=== PATIENT | male | born 1970 | race Caucasian/White ===

== ENCOUNTER 2017-04-26 07:57 | Observation (INO) ==
[2017-04-26 08:13] LABS: Bilirubin,Urine Negative (Negative); Blood,Urine Negative (Negative); Clarity,Urine Clear (Clear); Color,Urine Yellow (Yellow); Glucose,Urine (UA) Normal (Normal); Ketones,Urine Negative (Negative); Leukocyte Esterase,Urine Negative (Negative); Nitrite,Urine Negative (Negative); Protein,Urine Negative (Neg-Trace); Specific Gravity,Urine 1.023 (1.010-1.025); Urobilinogen,Urine Normal (Normal)
[2017-04-26] MEDS ORDERED: 0.9 % Sodium Chloride 1,000 ML IVC ONE (08:27)
[2017-04-26] MEDS ORDERED: Acetaminophen 325 MG TABLET PO ONE (08:31)
[2017-04-26 08:58] LABS: Basophils % 0.3 %; Eosinophils # 0.1 K/mcL (0.0-0.6); Eosinophils % 1.1 %; Hematocrit 44.5 % (37.5-50.1); Hemoglobin 14.8 g/dL (12.9-16.9); Immature Granulocytes % 0.4 % (0-4); Lymphocytes # 2.3 K/mcL (0.6-4.6); Lymphocytes % 32.9 %; Mean Corpuscular HGB Conc 33.3 g/dL (31.6-35.5); Mean Corpuscular Hemoglobin 29.1 pg (28.0-33.3); Mean Corpuscular Volume 87.4 fL (83.0-100.0); Mean Platelet Volume 9.2 fL (9.4-12.4); Monocytes # 0.4 K/mcL (0.0-1.3); Monocytes % 6.1 %; Neutrophils # 4.2 K/mcL (1.6-8.9); Platelet Count 289 K/mcL (140-400); Red Blood Count 5.09 M/mcL (4.19-5.50); Red Cell Distribution Width 13.4 % (11.5-14.5); Segmented Neutrophils % 59.2 %
--- NOTE | 2017-04-26 09:02 | Emergency Department Note ---
Disposition Clinical Impression: Syncope and collapse Headache Qualifiers: Headache type: unspecified Headache chronicity pattern: acute headache Intractability: not intractable Qualified Code(s): R51 - Headache Disposition: Admitted As Inpatient Condition: Fair Referrals: NONE,PCP [Primary Care Provider] - Forms: ED Satisfaction Letter Time of Disposition: 10:39 Syncope HPI - General Chief Complaint: ED Syncope Stated Complaint: Syncopal Episode Time Seen by Provider: 04/26/17 08:05 Source: patient Limitations: no limitations Nursing Notes Reviewed: Yes Vital Signs Reviewed: Yes - History of Present Illness HPI Narrative: The patient is a 47 y/o M with a history of hypertension who presents with syncopal episodes and a headache. Patient states that he has not been taking his blood pressure medications for one month and that he had a "mild heart attack" about one month ago. Patient states that the headache is frontal and throbbing that is worse with movement. Denies any radiation but admits photophobia and audiophobia. He states that two nights ago he passed out on the bathroom floor after urination for about 1 hour. HE admits loss of consciousness but does not know if he had any head trauma. Denies waking up in stool, urine, or blood. He denies any neurological deficits, numbness or tingling, weaknesses. He admits right shoulder pain and describes it like he hit it on something and was concern for fractures. - Related Data Previous Rx's Medication Instructions Recorded Escitalopram [Lexapro] 10 mg PO DAILY #30 tablet 03/12/16 TraZODone 100 mg PO HS PRN #30 tablet 03/12/16 hydrOXYzine pamoate [HydrOXYzine 50 mg PO TID PRN #120 capsule 03/12/16 Pamoate] Diclofenac Sodium [Voltaren] 50 mg PO Q8HR #30 tablet. 09/04/16 Tramadol HCl [Ultram] 50 mg PO Q6HR PRN #20 tab 09/04/16 Clotrimazole 1% CRM [Lotrimin 1%] 1 appl TP BID #1 tube 09/29/16 Doxycycline 100 mg PO BID #14 capsule 09/29/16 HYDROcodone/Acet 7.5/325 mg [[place] 1 tab PO Q6HR #20 tablet 09/29/16 7.5-325 mg] Ibuprofen 800 mg PO Q6HR #20 tablet 01/07/17 hydrOXYzine HCl [Hydroxyzine HCl] 50 mg PO BID PRN #15 tablet 02/15/17 Allergies Allergy/AdvReac Type Severity Reaction Status Date / Time naproxen Allergy Hives Verified 04/26/17 07:59 Penicillins Allergy Shakiness Verified 04/26/17 07:59 All systems ED: reviewed and negative except as stated. Constitutional: Denies: fever, chills, weakness Cardiovascular: Denies: chest pain, palpitations, dyspnea on exertion Respiratory: Denies: dyspnea, wheezes Musculoskeletal: Reports: other (right shoulder pain) Neurological: Reports: headache (frontal headache that is throbbing. Admits photophobia and audiophobia) Past Medical History - Past Medical History Medical history: Reports: kidney stones Surgical history: Reports: no surgical history Psychiatric history: Reports: depression, prior suicide attempt, previous psychiatric hospitalization - Social History Smoking Status: Current every day smoker Smokeless Tobacco Status: No Alcohol use: Reports: none Drug use: Reports: marijuana Physical Exam - General Limitations: no limitations General appearance: alert - Head Head exam: atraumatic - Eye Eye exam: Present: normal appearance, PERRL, EOMI - Cardiovascular Cardiovascular exam: Present: regular rate, normal rhythm. Absent: tachycardia , rubs, gallop, clicks - Abdominal Exam Abdominal exam: Present: soft, Non-Tender. Absent: tenderness, distention, guarding, rebound, rigidity - Neurological Exam Neurological exam: Present: alert, oriented X3, CN II-XII intact. Absent: motor sensory deficit Course - Consultations Consultation #1: 10:21 - Spoke with hospitalist and discussed the patient. Dr. Garcia accepted the patient. Time: 10:21 Vital Signs Temperature 97.9 F 04/26/17 07:59 Pulse Rate 88 04/26/17 07:59 Respiratory Rate 20 04/26/17 07:59 Blood Pressure 154/96 04/26/17 07:59 O2 Sat by Pulse Oximetry 99 04/26/17 07:59 Temperature 97.9 F 04/26/17 07:59 Pulse Rate 81 04/26/17 09:27 Respiratory Rate 18 04/26/17 09:27 Blood Pressure 148/98 04/26/17 09:27 O2 Sat by Pulse Oximetry 100 04/26/17 09:27 Oxygen Delivery Oxygen Delivery Room Air Syncope - MDM Narrative Medical decision making narrative: The patient is a 47 y/o M with a history of hypertension who presents with syncopal episodes and a headache. Patient states that he has not been taking his blood pressure medications for one month and that he had a "mild heart attack" about one month ago. Patient is afebrile with stable vitals. Labs are reviewed. Head CT, CXR, XR of right shoulder and XR cervical are unremarkable with no acute fractures or any intracranial bleeding. Patient is given Tylenol and later Toradol for pain. Plan to admit patient for observation. 10:21 - Spoke with hospitalist and discussed the patient. Dr. Garcia accepted the patient. - Lab Data Result diagrams: 04/26/17 08:51 04/26/17 09:17 Lab Results 04/26/17 04/26/17 04/26/17 Range/Units 08:00 08:51 08:51 WBC 7.0 (4.3-11.1) K/mcL RBC 5.09 (4.19-5.50) M/mcL Hgb 14.8 (12.9-16.9) g/dL Hct 44.5 (37.5-50.1) % MCV 87.4 (83.0-100.0) fL MCH 29.1 (28.0-33.3) pg MCHC 33.3 (31.6-35.5) g/dL RDW 13.4 (11.5-14.5) % Plt Count 289 (140-400) K/mcL MPV 9.2 L (9.4-12.4) fL Immature Gran % 0.4 (0-4) % Seg Neutrophils % 59.2 % Lymphocytes % 32.9 % Monocytes % 6.1 % Eosinophils % 1.1 % Basophils % 0.3 % Neutrophils # 4.2 (1.6-8.9) K/mcL Lymphocytes # 2.3 (0.6-4.6) K/mcL Monocytes # 0.4 (0.0-1.3) K/mcL Eosinophils # 0.1 (0.0-0.6) K/mcL Basophils # 0.0 (0.0-0.2) K/mcL PT 9.5 (9.4-12.1) Seconds INR 0.9 APTT 29.7 (26.0-36.0) Seconds D-Dimer 325 (0-500) ng/mLFEU Sodium (136-145) mEq/L Potassium (3.5-4.5) mEq/L Chloride (98-109) mEq/L Carbon Dioxide (19-29) mEq/L BUN (8-26) mg/dL Creatinine (0.72-1.25) mg/dL Est GFR ( Amer) (> 60) Est GFR (Non-Af Amer) (> 60) BUN/Creatinine Ratio (6-26) Glucose (70-99) mg/dL Calculated Osmolality (280-300) Calcium (8.6-10.8) mg/dL Creatine Kinase (30-200) Units/L Troponin I (0-0.03) ng/mL Urine Color Yellow (Yellow) Urine Clarity Clear (Clear) Urine pH 7.0 (5.0-8.0) pH Units Ur Specific [place] 1.023 (1.010-1.025) Urine Protein Negative (Neg-Trace) mg/dL Urine Glucose (UA) Normal (Normal) mg/dL Urine Ketones Negative (Negative) mg/dL Urine Blood Negative (Negative) Urine Nitrite Negative (Negative) Urine Bilirubin Negative (Negative) Urine Urobilinogen Normal (Normal) mg/dL Ur Leukocyte Esterase Negative (Negative) Ur Culture Indicated? NO (NO) Specimen Rejected 04/26/17 04/26/17 04/26/17 Range/Units 08:51 09:02 09:17 WBC (4.3-11.1) K/mcL RBC (4.19-5.50) M/mcL Hgb (12.9-16.9) g/dL Hct (37.5-50.1) % MCV (83.0-100.0) fL MCH (28.0-33.3) pg MCHC (31.6-35.5) g/dL RDW (11.5-14.5) % Plt Count (140-400) K/mcL MPV (9.4-12.4) fL Immature Gran % (0-4) % Seg Neutrophils % % Lymphocytes % % Monocytes % % Eosinophils % % Basophils % % Neutrophils # (1.6-8.9) K/mcL Lymphocytes # (0.6-4.6) K/mcL Monocytes # (0.0-1.3) K/mcL Eosinophils # (0.0-0.6) K/mcL Basophils # (0.0-0.2) K/mcL PT (9.4-12.1) Seconds INR APTT (26.0-36.0) Seconds D-Dimer (0-500) ng/mLFEU Sodium 144 (136-145) mEq/L Potassium 3.9 (3.5-4.5) mEq/L Chloride 110 H (98-109) mEq/L Carbon Dioxide 26 (19-29) mEq/L BUN 11 (8-26) mg/dL Creatinine 0.95 (0.72-1.25) mg/dL Est GFR ( Amer) > 60 (> 60) Est GFR (Non-Af Amer) > 60 (> 60) BUN/Creatinine Ratio 12 (6-26) Glucose 100 H (70-99) mg/dL Calculated Osmolality 297 (280-300) Calcium 8.7 (8.6-10.8) mg/dL Creatine Kinase 69 (30-200) Units/L Troponin I 0.00 (0-0.03) ng/mL Urine Color (Yellow) Urine Clarity (Clear) Urine pH (5.0-8.0) pH Units Ur Specific [place] (1.010-1.025) Urine Protein (Neg-Trace) mg/dL Urine Glucose (UA) (Normal) mg/dL Urine Ketones (Negative) mg/dL Urine Blood (Negative) Urine Nitrite (Negative) Urine Bilirubin (Negative) Urine Urobilinogen (Normal) mg/dL Ur Leukocyte Esterase (Negative) Ur Culture Indicated? (NO) Specimen Rejected Hemolyzed - EKG Data EKG attestation: Yes I reviewed and interpreted this EKG. EKG shows normal: sinus rhythm Rate: normal Rhythm: NSR Interpretation: no acute changes Attestation Statement - Attestation Attestation: Patient was seen with resident physician. I reviewed the history, physical, assessment and plan, and agree with the findings. I also personally evaluated this patient and had [id number] time with this patient. 47-year-old male presents emergency Department chief complaint of syncopal episode. Patient states that approximately 2 days ago he passed out after going to the bathroom. Patient states he thinks he was out for approximately 30 minutes to one hour. He is not sure the exact timeframe. He is not having chest pain or shortness of breath. Is of a headache and some neck pain and some right shoulder pain. Denies fevers or chills. Patient also notes a history of recently having had an [place] at another hospital. He said it was mild and he did not have a catheterization or stent. On examination vital signs are stable. ENT is unremarkable. Heart and lungs are both normal. Abdomen is soft and nontender. Extremities unremarkable except for the right shoulder which is tender to palpation especially superiorly. He has decent range of motion.. Neurologically patient is intact. Neck is tender to palpation diffusely. ED course vital signs remained stable throughout his stay in the emergency department. Head CT scan did not show any acute abnormalities. Neither did not CT. Chest x-ray was okay as was shoulder which did not reveal acute fracture. Labs also were unremarkable. With the patient's syncopal episode will admit for further evaluation and treatment. I agree with resident physician assessment plan.
[2017-04-26] MEDS ORDERED: Ketorolac 15 MG/ML VIAL IVP ONE (09:32)
[2017-04-26 09:38] LABS: BUN/Creatinine Ratio 12 (6-26); Blood Urea Nitrogen 11 mg/dL (8-26); Calcium 8.7 mg/dL (8.6-10.8); Carbon Dioxide 26 mEq/L (19-29); Chloride 110 mEq/L (98-109); Creatine Kinase 69 Units/L (30-200); Glucose 100 mg/dL (70-99); Osmolality,Calculated 297 (280-300); Potassium 3.9 mEq/L (3.5-4.5); Sodium 144 mEq/L (136-145); eGFR For African Americans > 60 (> 60); eGFR For Non-African Americans > 60 (> 60)
[2017-04-26 09:52] LABS: INR 0.9; Prothrombin Time 9.5 Seconds (9.4-12.1)
[2017-04-26 09:55] LABS: Activated Partial Thrombo Time 29.7 Seconds (26.0-36.0)
[2017-04-26] MEDS ORDERED: Naloxone 0.4 MG/ML INJ IVP PRN (11:00)
[2017-04-26] MEDS ORDERED: Ondansetron 4 MG/2 ML VIAL IVP PRN (11:02)
--- NOTE | 2017-04-26 12:28 | Internal Med History&Physical ---
<Kyung Green - Last Filed: 04/26/17 13:49> Date of Encounter: 04/26/17 Time of Encounter: 11:00 Assessment and Plan (1) Syncope and collapse Current visit: Yes Status: Acute 1 patient did experience episode of syncope which occurred after he had urinated. He did admit to feeling of palpitations as well as lightheadedness prior to the incident. States he had a positive consciousness for approximately 1 hour. Denies any loss of bowel or bladder. This incident occurred 2 days ago and has not had an episode since how he does have a headache. 2 we will obtain orthostatic vital signs 3 fall precautions 4 we will obtain cardiac echo 5 continuous cardiac monitoring (2) Headache Current visit: Yes Status: Acute 1 patient has been experiencing a headache since Wednesday. He has associated symptoms of photophobia denies any nausea or vomiting. He has been taking Tylenol and ibuprofen with little relief. CT of his head was negative for any abnormalities. 2 we will give Tylenol and Toradol-narcotics only if unrelieved 3 low flow oxygen Qualifiers: Headache type: unspecified Headache chronicity pattern: acute headache Intractability: not intractable Qualified Code(s): R51 - Headache (3) DVT prophylaxis Current visit: No Status: Acute SARAH campuzano Internal Medicine - H&P: HPI Chief complaint: syncope Admitted From: Emergency Dept Plans for Post Hospital Care: Home History of present illness: Mr. Reyes is a 47 year old male past medical history of hypertension panic attacks, depression with previous suicide attempts. 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 Prior to collapsing he did feel some palpitations and lightheadedness. He says he was unconscious for approximate one hour when his roommate found him on the floor. He denies any head trauma incontinence of stool or urine, numbness tingling or weakness. He does have right shoulder pain describes as if he hit something and was concerned that possibly may be fractured. He has been experiencing a headache since Wednesday morning he describes as frontal and throbbing worse with movement and has been experiencing photophobia and audiophobia. Has been taking tylenol and ibuprophen with little relief He has a history of hypertension and has not been taking his medications for approximately a month. He also states that approximately one month ago he had a cardiac workup [facility] [place] and that he had a "mild heart attack"he presented to the ER with the above complaints according to ER records lab work was unremarkable troponin was 0 his blood pressure was 131/95 heart rate in the 60s, head CT was dated for any intracranial abnormalities chest x-ray no acute process x-ray of right shoulder with no fracture x-rays C-spine with no acute fractures. He was given Tylenol and Toradol for pain and has been admitted for further workup and evaluation. Presently patient is alert and appropriate following simple commands and is able to ambulate without any difficulty denies any lightheadedness with positional changes. He has frontal headache with photophobia denies any nausea at this time. Cranial nerves II through XII are intact no focal deficits noted extremities are strong and equal 4. Patient denies any chest pain shortness of breath or dizziness at this time. Lung sounds are clear heart sounds are regular S1 and S2 with no rubs clicks murmurs noted abdomen soft and nontender. No pedal edema. Patient does admit to panic attacks every states he feels this is not a panic attack. He also admits to smoking marijuana however denies any other illicit drug use. He is hemodynamically stable at this time. I reviewed this case with Dr. Garcia who agrees with plan Past Med Surg Social Fam HX - Past Medical History Medical history: kidney stones Psychiatric history: depression, prior suicide attempt, previous psychiatric hospitalization - Past Surgical History Surgical History: no surgical history - Social History Smoking Status: Current every day smoker Smokeless Tobacco Status: No Alcohol use: none Drug use: marijuana - Family History Father Living Status: Mother Living Status: Still Living Internal Medicine - H&P: Meds No Known Home Drugs 04/26/17 [History] 3 Allergy/AdvReac Type Severity Reaction Status Date / Time naproxen Allergy Hives Verified 04/26/17 07:59 Penicillins Allergy Shakiness Verified 04/26/17 07:59 All Systems PM: A 10-system review of systems was performed and is negative for pertinent findings except as documented above in the HPI. - Constitutional Constitutional: no chills, no fever(s), no night sweats - EENT Eyes: photophobia, no change in vision, no discharge, no pain Nose, mouth and throat: no dysphagia, no nasal discharge, no neck pain, no sore throat - Cardiovascular Cardiovascular ROS IM: palpitations, syncope, no chest pain, no diaphoresis, no dyspnea, no lightheadedness - Respiratory Respiratory: no cough, no dyspnea, no wheezing, no excessive phlegm production - Gastrointestinal Gastrointestinal: no abdominal pain, no diarrhea, no hematemesis, no hematochezia, no melena, no nausea, no vomiting - Musculoskeletal Musculoskeletal ROS IM: no numbness, no tingling - Integumentary Integumentary IM: no rash, no unusual bruising - Neurological Neurological ROS: no confusion, no convulsions, no focal weakness, no numbness, no tingling, no tremor(s) - Hematologic/Lymphatic Hematologic/Lymphatic: no easy bruising - Constitutional Vitals: Temp Pulse Resp BP Pulse Ox 98.1 F 68 16 136/87 99 04/26/17 12:09 04/26/17 12:09 04/26/17 12:09 04/26/17 12:09 04/26/17 12:09 General appearance: Present: A&O X 3 - Head Head exam: Present: atraumatic, normocephalic - Eye Eye exam: Present: PERRL, conjuntiva pink, sclera anicteric Pupils: Present: PERRL - Neck Neck exam general surgery: Present: supple, trachea midline. Absent: lymphadenopathy - Respiratory Respiratory exam: Present: CTAB. Absent: accessory muscle use, rales, rhonchi, wheezes - Cardiovascular Cardiovascular exam: Present: RRR, +S1, +S2. Absent: diastolic murmur, gallop, rubs, systolic murmur - GI/Abdominal GI/Abdominal exam: Present: normal bowel sounds, soft, no peritoneal signs. Absent: distended, tenderness - Extremities Exam Extremities exam: Present: warm, radial pulses palpable and symmetrical. Absent : calf tenderness, cyanotic, pedal edema - Neurological Exam Neurological exam: Present: CN II-XII intact, oriented X3, no focal deficits. Absent: pronater drift, facial droop, speech deficit - Skin Skin exam: Present: dry, intact Internal Med - H&P Results - Labs CBC & Chem 7: 04/26/17 08:51 04/26/17 09:17 - EKG Data EKG shows normal: sinus rhythm - EKG Data Prior EKG available for review: yes When compared to previous EKG: there is no significant change - Diagnostic Studies Other Images Additional comments: Chest X-Ray 04/26/17 08:27 IMPRESSION: No acute process. D/ / Chico Franklin MD / Chico Franklin MD Interpreting Provider: Chico Franklin MD Head CT 04/26/17 08:27 IMPRESSION: No acute intracranial abnormality. D/ / Chico Franklin MD / Chico Franklin MD Interpreting Provider: Chico Franklin MD Shoulder X-Ray 04/26/17 08:30 IMPRESSION: 1. No acute bony or joint abnormality. 2. Mild chronic widening of the AC joint. D/ / 04/26/2017 09:01:40 Chico Franklin MD / precious Interpreting Provider: Chico Franklin MD Cervical Spine X-Ray 04/26/17 09:29 IMPRESSION: 1. Straightening of the cervical spine may be secondary to muscle spasm or patient positioning. 2. No acute osseous abnormality in the cervical spine. D/ / Marian Hammond MD / Marian Hammond MD Interpreting Provider: Marian Hammond MD <Venkat Garcia - Last Filed: 04/26/17 19:42> Date of Encounter: 04/26/17 Internal Medicine - H&P: HPI History of present illness: Mr. Reyes is a 47 year old male All Systems PM: A 10-system review of systems was performed and is negative for pertinent findings except as documented above in the HPI. - Constitutional Vitals: Temp Pulse Resp BP Pulse Ox 97.5 F L 72 16 128/83 99 04/26/17 18:55 04/26/17 18:55 04/26/17 18:55 04/26/17 18:55 04/26/17 18:55 Internal Med - H&P Results - Labs CBC & Chem 7: 04/26/17 08:51 04/26/17 09:17 Labs: Cardiac Enzymes 04/26/17 Range/Units 15:08 Troponin I 0.00 (0-0.03) ng/mL - Attending Attestation I independently obtained history and examined this patient and my medical decision-making was reviewed with the nurse practitioner. I agree with the documented findings, disposition and treatment plan as described. My findings are summarized below: He is awake alert oriented in no acute distress. Neurologic exam is nonfocal. Heart is regular with no murmurs rubs or gallops. EKG personally reviewed by myself shows normal sinus rhythm 81 complex as per minute normal axis and intervals. No acute ST or T-wave changes. Plan: Will place patient in observation. Workup for syncope including heart monitor, orthostatic vital signs, and troponin, echocardiogram.
[2017-04-26] MEDS: 0.9 % Sodium Chloride 1,000 ML IVC SCH (13:43)
[2017-04-26 18:01] LABS: Amphetamine Screen,Urine Negative ng/mL (Cutoff=1000); Barbiturate Screen,Urine Negative ng/mL (Cutoff=200); Benzodiazepines Screen,Urine Negative ng/mL (Cutoff=200); Cannabinoid Screen,Urine Positive ng/mL (Cutoff = 50); Cocaine Screen,Urine Negative ng/mL (Cutoff= 300); Opiate Screen,Urine Negative ng/mL (Cutoff=300); Phencyclidine Screen,Urine Negative ng/mL (Cutoff=25)
[2017-04-26] MEDS: Acetaminophen 325 MG TABLET PO PRN (18:47)
[2017-04-26] MEDS: Ketorolac 30 MG/ML VIAL IVP PRN (18:49)
--- NOTE | 2017-04-26 21:10 | Electrocardiograph Report ---
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
[2017-04-26] MEDS ORDERED: *HR* Morphine 2 MG/ML SYRINGE IVP STA (22:06)
[2017-04-27] MEDS: 0.9 % Sodium Chloride 1,000 ML IVC SCH ×2 (03:47→11:05)
[2017-04-27] MEDS: Ketorolac 30 MG/ML VIAL IVP PRN ×3 (03:47→15:16)
[2017-04-27 06:41] LABS: BUN/Creatinine Ratio 11 (6-26); Blood Urea Nitrogen 9 mg/dL (8-26); Calcium 9.1 mg/dL (8.6-10.8); Carbon Dioxide 24 mEq/L (19-29); Chloride 109 mEq/L (98-109); Chol/HDL Ratio 4.4 (0-4.9); Cholesterol 214 mg/dL (< 200); Glucose 100 mg/dL (70-99); HDL Cholesterol 49 mg/dL (40-59); LDL Cholesterol,Calculated 142 mg/dL (0-99); Magnesium 2.1 mg/dL (1.6-2.6); Osmolality,Calculated 291 (280-300); Potassium 4.2 mEq/L (3.5-4.5); Sodium 141 mEq/L (136-145); Triglycerides 117 mg/dL (< 150); eGFR For African Americans > 60 (> 60); eGFR For Non-African Americans > 60 (> 60)
[2017-04-27 06:58] LABS: Basophils % 0.1 %; Eosinophils # 0.1 K/mcL (0.0-0.6); Eosinophils % 1.3 %; Immature Granulocytes % 0.5 % (0-4); Lymphocytes # 1.9 K/mcL (0.6-4.6); Lymphocytes % 24.9 %; Mean Corpuscular HGB Conc 33.3 g/dL (31.6-35.5); Mean Corpuscular Hemoglobin 29.6 pg (28.0-33.3); Mean Corpuscular Volume 88.8 fL (83.0-100.0); Mean Platelet Volume 9.5 fL (9.4-12.4); Monocytes # 0.4 K/mcL (0.0-1.3); Monocytes % 5.1 %; Neutrophils # 5.3 K/mcL (1.6-8.9); Platelet Count 277 K/mcL (140-400); Red Blood Count 4.73 M/mcL (4.19-5.50); Red Cell Distribution Width 13.3 % (11.5-14.5); Segmented Neutrophils % 68.1 %
[2017-04-27] MEDS: Acetaminophen 325 MG TABLET PO PRN (09:48)
[2017-04-27] MEDS ORDERED: Metoclopramide 10 MG/2 ML VIAL IVP ONE (09:55)
--- NOTE | 2017-04-27 11:12 | Neurology - Consult Note ---
<Damon Houser - Last Filed: 04/27/17 11:05> Date of Encounter: 04/27/17 Time of Encounter: 10:45 Assessment and Plan (1) Headache Current Visit: Yes Status: Acute Patient reports waking from syncopal event with severe head and neck pain. Although range of motion is intact, significant pain is elicited with passive movement of patient head and neck pain reproduced with bilateral hip flexion. He does report having significant photo and phonophobia. Patient syncopal event unlikely due to seizure or TIA/CVA. Possibly due to micturition syncope, but subjective report and objective findings concerning for aseptic meningitis. We will wait for MRI results Qualifiers: Headache type: unspecified Headache chronicity pattern: acute headache Intractability: not intractable Qualified Code(s): R51 - Headache (2) Syncope and collapse Current Visit: Yes Status: Acute Patient reports syncopal event following urination at home early-morning syncope. His ever had before. Reports having brief lightheadedness prior to event. He woke with very limited confusion and no description of incontinence or tongue biting. Head CT was normal and echocardiogram unremarkable. MRI is pending Plan as above History of Present Illness Chief complaint: Syncopal event HPI: Mr. Reyes is a 47 year old male with past medical history of hypertension, panic attacks, and depression (with prior suicide attempts) who presents [place] on Wednesday evening having had a syncopal event early Wednesday morning. Patient reports he had a syncopal event at home after urinating at roughly 1:30 in the morning Wednesday. He states he felt lightheaded and warmth immediately prior to losing consciousness. He thinks he was unconscious roughly 20 minutes and woke slightly confused for roughly 2 minutes. He reports that upon waking he had pain in his head and his neck. He denies incontinence (as he had just urinated ) she also denies biting his tongue (but reports he has no teeth) He did not feel necessary to come to the hospital on Wednesday began to the hospital one day after having continued headache as well as having developed photo- and phonophobia. He also reports with increased severity of headache that began yesterday he had increasing nausea and anorexia, but denies emesis. He does report having continued neck pain and headache, but denies fever/chills. He denies any focal neurological findings include blurred vision, focal weakness, or sensation deficits. He feels he has been sweating more since being admitted to the hospital. He denies shortness of breath, denies cough, denies chest pain , denies palpitations, denies abdominal pain. Past Med Surg Social Fam HX - Past Medical History Medical history: kidney stones Psychiatric history: depression, prior suicide attempt, previous psychiatric hospitalization - Past Surgical History Surgical History: no surgical history - Social History Smoking Status: Current every day smoker Smokeless Tobacco Status: No Alcohol use: none Drug use: marijuana - Family History Father Living Status: Age at : 67 Cause of : stroke Hx Family Cardiac Disorders: Yes Mother Living Status: Still Living Medications and Allergies No Known Home Drugs 04/26/17 [History] 3 Allergy/AdvReac Type Severity Reaction Status Date / Time naproxen Allergy Hives Verified 04/26/17 07:59 Penicillins Allergy Shakiness Verified 04/26/17 07:59 Review of Systems: Gen: Denies fever, denies chills, reports diaphoresis, denies weakness, denies fatigue CV: Denies chest pain, denies palpitations Resp: Denies shortness of breath, denies coughing GI: Reports nausea, reports anorexia, denies vomiting, denies abdominal pain, denies constipation MSK: denies arthralgia, denies muscle weakness Neuro: Reports headache as per history of present illness, reports neck pain, reports confusion as per history of present illness, denies focal weakness, denies numbness, denies tingling, denies vision changes, reports photophobia, reports phonophobia Skin: Denies bruising, denies rash Physical Examination - Vital Signs Vital Signs: Initial Vital Signs Temp Pulse Resp BP Pulse Ox 97.9 F 88 20 154/96 99 04/26/17 07:59 04/26/17 07:59 04/26/17 07:59 04/26/17 07:59 04/26/17 07:59 - Exam Exam: General: Cooperative, pleasant, no acute distress, alert and oriented 3, answers questions appropriately, patient has arm covering eyes when initially evaluated HEENT: Normocephalic, atraumatic, neck range of motion full, tenderness to palpation and movement of neck, trachea midline, Conjunctiva pink, sclera anicteric, EOMI, PERRL, oral mucosa moist, no orophargeal erythema or exudates, no tongue lacerations observed (patient without teeth) Respiratory: No accessory muscle usage, clear to auscultation bilaterally, no wheezes/rhonchi/rales appreciated Cardiovascular: Regular rate and rhythm, S1 and S2 present, no murmurs/rubs/ gallops/clicks appreciated Extremities: No calf tenderness, lower extremity pulses palpable and symmetrical Neurological: Alert and oriented 3, no facial droop, no focal deficits, cranial nerves II through XII grossly intact without deficits, strength 5/5 in upper lower extremity bilaterally, sensation to gross touch grossly intact in upper and lower extremities bilaterally, DTRs 1/4 in patellar and Achilles, 2/4 in brachioradialis, biceps, and triceps, finger to nose accurate and smooth, rapid alternating movements with good marylou, photophobia present would not allow bright light and eyes for long, bilateral hip flexion elicited pain in cervical spine Skin: Dry, intact, normal color Results - Laboratory Findings CBC and BMP: 04/27/17 05:56 04/27/17 05:56 Abnormal lab findings: Abnormal lab results Glucose 100 mg/dL (70-99) H 04/27/17 05:56 POC Glucose 127 (58-89) H 04/26/17 08:48 Cholesterol 214 mg/dL (< 200) H 04/27/17 05:56 LDL Cholesterol, Calc 142 mg/dL (0-99) H 04/27/17 05:56 U Marijuana (THC) Screen Positive ng/mL (Cutoff = 50) H 04/26/17 17:50 Consult Discharge Plan - Plan Referrals: NONE,PCP [Primary Care Provider] - <Kevin Villanueva - Last Filed: 04/27/17 12:54> Date of Encounter: 04/27/17 Time of Encounter: 12:45 Assessment and Plan (1) Syncope and collapse Current Visit: Yes Status: Acute I saw and examined the patient. I agree with Dr. Damon Houser's history taking , physical examination, assessment and plan. Patient developed passing out spell after urination, with some lightheadedness proceeding the spell. No seizure activity reported. No tongue biting or urinary incontinence. Patient carries a diagnosis of migraine and has been taking imitrex prn basis. Also has chronic shoulder and neck pain and has been on multiple medications for these condition and after the syncopal spell the headache was little more severe but improved after migraine cocktail treatment. Currently has nonfocal neurological examination and is sitting in the bed, comfortably eating. No indication of primary neurological disorder. Agree with MRI of brain, from neurological perspective no further testing appears necessary. headaches are improving and imitrex prn and treatment is largely empirical and symptomatic. (2) Headache Current Visit: Yes Status: Acute This appears to be migraine aggravated by having syncopal episode. Responding to migraine cocktail and is having nonfocal neurological examination. Treat symptomatically. Patient used to have chronic shoulder and neck pain. He has no fever no nuchal rigidity and is comfortably eating. work up for meningitis not needed. Qualifiers: Headache type: unspecified Headache chronicity pattern: acute headache Intractability: not intractable Qualified Code(s): R51 - Headache History of Present Illness HPI: Mr. Reyes is a 47 year old male All Systems: A 10-system review of systems was performed and is negative for pertinent findings except as documented above in the HPI. Physical Examination - Vital Signs Vital Signs: Initial Vital Signs Temp Pulse Resp BP Pulse Ox 97.9 F 88 20 154/96 99 04/26/17 07:59 04/26/17 07:59 04/26/17 07:59 04/26/17 07:59 04/26/17 07:59 Results - Laboratory Findings CBC and BMP: 04/27/17 05:56 04/27/17 05:56 Abnormal lab findings: Abnormal lab results Glucose 100 mg/dL (70-99) H 04/27/17 05:56 POC Glucose 127 (58-89) H 04/26/17 08:48 Cholesterol 214 mg/dL (< 200) H 04/27/17 05:56 LDL Cholesterol, Calc 142 mg/dL (0-99) H 04/27/17 05:56 U Marijuana (THC) Screen Positive ng/mL (Cutoff = 50) H 04/26/17 17:50
--- NOTE | 2017-04-27 14:00 | Internal Med Progress Note ---
Date of Encounter: 04/27/17 Time of Encounter: 13:58 - Assessment and plan (1) Syncope and collapse Current Visit: Yes Status: Acute Assessment and plan: 2 days prior to presentation with loss of consciousness. Episode occurred or patient was voiding. No evidence of biting tongue, no loss of bowel or bladder continence. Head CT negative. TTE with EF 60%, normal systolic and diastolic function. Possibly vasovagal syncope. No symptom recurrence. Monitor on telemetry. Brain MRI, bilateral carotid pending. Neurology following (2) Migraines Current Visit: Yes Status: Acute Assessment and plan: History of migraines in the past. Now with headache with associated photophobia that started 2 days prior to presentation. CT head negative. Symptoms improved with headache cocktail. Brain MRI pending. Neurology following. Qualifiers: Migraine type: without aura Status migrainosus presence: without status migrainosus Intractability: not intractable Qualified Code(s): G43.009 - Migraine without aura, not intractable, without status migrainosus (3) DVT prophylaxis Current Visit: No Status: Acute Assessment and plan: heparin - Subjective Interval history: And examined at bedside, patient is new to me. Information obtained from chart review and patient report. Patient says he still having headache, rates 10 out of 10. Headache starts and occipital area radiates to temporal area. Loud noises and might worsen pain. Nothing seems to improve pain. No blurred or double vision, no numbness or tingling. No chest pain, no shortness of breath. - Constitutional Vitals: Temp Pulse Resp BP Pulse Ox 97.3 F L 53 15 158/70 96 04/27/17 11:29 04/27/17 11:29 04/27/17 11:29 04/27/17 11:29 04/27/17 11:29 General appearance: Present: A&O X 3 - Head Head exam: Present: atraumatic, normocephalic - Eye Eye exam: Present: PERRL, conjuntiva pink, sclera anicteric Pupils: Present: PERRL - Neck Neck exam general surgery: Present: supple, trachea midline. Absent: lymphadenopathy - Respiratory Respiratory exam: Present: CTAB. Absent: accessory muscle use, rales, rhonchi, wheezes - Cardiovascular Cardiovascular exam: Present: RRR, +S1, +S2. Absent: diastolic murmur, gallop, rubs, systolic murmur - GI/Abdominal GI/Abdominal exam: Present: normal bowel sounds, soft, no peritoneal signs. Absent: distended, tenderness - Extremities Exam Extremities exam: Present: warm, radial pulses palpable and symmetrical. Absent : calf tenderness, cyanotic, pedal edema - Neurological Exam Neurological exam: Present: CN II-XII intact, oriented X3, no focal deficits. Absent: pronater drift, facial droop, speech deficit - Skin Skin exam: Present: dry, intact Internal Medicine: Result - Labs CBC & Chem 7: 04/27/17 05:56 04/27/17 05:56 Labs: Short CBC 04/27/17 Range/Units 05:56 WBC 7.8 (4.3-11.1) K/mcL Hgb 14.0 (12.9-16.9) g/dL Hct 42.0 (37.5-50.1) % Plt Count 277 (140-400) K/mcL Neutrophils # 5.3 (1.6-8.9) K/mcL BMP 04/27/17 05:56 Sodium 141 Potassium 4.2 Chloride 109 Carbon Dioxide 24 BUN 9 Creatinine 0.85 Glucose 100 H Calcium 9.1 Cardiac Enzymes 04/26/17 04/26/17 Range/Units 15:08 21:57 Troponin I 0.00 0.00 (0-0.03) ng/mL - ABG Interpretation ABG results: PT/INR, D-dimer PT 9.5 Seconds (9.4-12.1) 04/26/17 08:51 D-Dimer 325 ng/mLFEU (0-500) 04/26/17 08:51 - Impressions Impressions Echocardiogram 04/26/17 11:06 Impressions: Normal LV systolic function, LVEF 60%. Normal left ventricular diastolic function. Normal right ventricular size and function. No significant valvular dysfunction. Left Ventricular Wall Motion: Rest Echo Findings All wall segments showed normal motion. Findings: Study Quality * Technically adequate exam. ECG Findings * Normal sinus rhythm. Left Ventricle * Normal LV systolic function, LVEF 60%. * Normal LV chamber size and wall thickness. * Normal left ventricular diastolic function. Right Ventricle * Normal right ventricular size and function. Left Atrium * Normal left atrial size. Right Atrium * Normal right atrial size. Aorta * Normally sized aortic root. Pericardium * There is a trivial pericardial effusion present. IVC * The IVC is not dilated. Aortic Valve * Trileaflet aortic valve. * No aortic stenosis. * Trace aortic regurgitation. Mitral Valve * Normal mitral valve structure. * No mitral stenosis. * Trace mitral regurgitation. Tricuspid Valve * Normal tricuspid valve structure. * No tricuspid stenosis. * Trace tricuspid regurgitation. * Unable to estimate RVSP due to lack of TR jet. Pulmonic Valve * Normal pulmonic valve structure. * No pulmonic stenosis. * Trace pulmonic regurgitation. Brain MRI 04/27/17 10:32 IMPRESSION: 1. No acute infarct or acute intracranial process identified. 2. Scattered nonspecific foci of white matter signal abnormality which may represent mild chronic small vessel ischemic changes. D/ / Nico Solo MD / Nico Solo MD Interpreting Provider: Nico Solo MD Consult Discharge Plan - Plan Referrals: NONE,PCP [Primary Care Provider] -
--- NOTE | 2017-04-27 18:10 | Carotid Imaging Report ---
Carotid Duplex Patient Name:Chico Reyes Order Number:[id number] Procedure Date:04/27/2017 Date:1970Age:47 yrs Gender:Male Lt BP:150 / 90 mmHg Rt.BP:149 / 91 mmHgHeart Rate: Location:[facility] Room #: 45 Fork Operator:Su Wilder, FEDER[place], RVT Referring MD:Asia Coates, DIRECTOR [employer]ENS[employer] Reading MD:Tommie Mai MD Primary Indications:Syncope and collapse Impressions: The bilateral carotid arteries are normal throughout. Findings Carotid Duplex: Plummer scale imaging combined with Doppler flow analysis suggests normal findings bilaterally. Right: The right proximal common carotid artery has a PSV of 80 cm/s and a EDV of 19 cm/s. The right mid common carotid artery has a PSV of 79 cm/s and a EDV of 19 cm/s. The right distal common carotid artery has a PSV of 76 cm/s and a EDV of 22 cm/s. The right bifurcation has a PSV of 62 cm/s and a EDV of 16 cm/s. The right proximal internal carotid artery has a PSV of 53 cm/s and a EDV of 20 cm/s. The right mid internal carotid artery has a PSV of 71 cm/s and a EDV of 27 cm/s. The right distal internal carotid artery has a PSV of 67 cm/s and a EDV of 25 cm/s. The right eca has a PSV of 84 cm/s and a EDV of 14 cm/s. The right vertebral artery has a PSV of 43 cm/s and a EDV of 17 cm/s. Left: The left proximal common carotid artery has a PSV of 93 cm/s and a EDV of 16 cm/s. The left mid common carotid artery has a PSV of 86 cm/s and a EDV of 16 cm/s. The left distal common carotid artery has a PSV of 77 cm/s and a EDV of 19 cm/s. The left bifurcation has a PSV of 83 cm/s and a EDV of 20 cm/s. The left proximal internal carotid artery has a PSV of 65 cm/s and a EDV of 24 cm/s. The left mid internal carotid artery has a PSV of 73 cm/s and a EDV of 29 cm/s. The left distal internal carotid artery has a PSV of 79 cm/s and a EDV of 32 cm/s. The left eca has a PSV of 89 cm/s and a EDV of 18 cm/s. The left vertebral artery has a PSV of 45 cm/s and a EDV of 13 cm/s. Prior Study: No prior study available for comparison. Carotid Results Right PSV EDV Assessment Proximal CCA 80 19 Mid CCA 79 19 Distal CCA 76 22 Bifurcation 62 16 Proximal ICA 53 20 Mid ICA 71 27 Distal ICA 67 25 ECA 84 14 Vertebral Artery 43 17 Antegrade Flow Left PSV EDV Assessment Proximal CCA 93 16 Mid CCA 86 16 Distal CCA 77 19 Bifurcation 83 20 Proximal ICA 65 24 Mid ICA 73 29 Distal ICA 79 32 ECA 89 18 Vertebral Artery 45 13 Antegrade Flow Ratio's Right ICA/CCA Ratio: 0.90 ICA/CCA Values: 71/79 Left ICA/CCA Ratio: 0.92 ICA/CCA Values: 79/86 Updated by Tommie Mai MD on 04/27/2017 6:03:25 PM electronically signed on 04/27/2017 6:03:47 PM with status of Final
[2017-04-27] MEDS ORDERED: *HR* Acetaminophen w/Cod 300-30 mg 1 TAB TABLET PO ONE (21:00)
[2017-04-28 04:44] LABS: Hematocrit 40.3 % (37.5-50.1); Hemoglobin 13.7 g/dL (12.9-16.9); Mean Corpuscular Volume 88.4 fL (83.0-100.0); Mean Platelet Volume 10.4 fL (9.4-12.4); Platelet Count 160 K/mcL (140-400); Red Blood Count 4.56 M/mcL (4.19-5.50); Red Cell Distribution Width 13.3 % (11.5-14.5)
[2017-04-28] MEDS: Ketorolac 30 MG/ML VIAL IVP PRN (04:48)
[2017-04-28 05:08] LABS: Alanine Aminotransferase 20 Units/L (0-55); Albumin 3.7 g/dL (3.5-5.0); Albumin/Globulin Ratio 1.1 (1.1-2.2); Alkaline Phosphatase 90 Units/L (38-126); BUN/Creatinine Ratio 9 (6-26); Bilirubin,Total 0.5 mg/dL (0.2-1.2); Blood Urea Nitrogen 8 mg/dL (8-26); Calcium 9.1 mg/dL (8.6-10.8); Carbon Dioxide 18 mEq/L (19-29); Chloride 110 mEq/L (98-109); Globulin 3.4 g/dL (2.4-3.5); Glucose 85 mg/dL (70-99); Osmolality,Calculated 288 (280-300); Sodium 140 mEq/L (136-145); eGFR For African Americans > 60 (> 60); eGFR For Non-African Americans > 60 (> 60)
[2017-04-28 05:09] LABS: Aspartate Amino Transferase 32 Units/L (5-34); Total Protein 7.1 g/dL (6.0-8.3)
[2017-04-28 05:10] LABS: Potassium 4.5 mEq/L (3.5-4.5)
[2017-04-28 07:19] VITALS: BP 118/76
--- NOTE | 2017-04-28 08:48 | Discharge Summary ---
Date of Encounter: 04/28/17 Time of Encounter: 08:22 - Discharge Diagnosis (1) Syncope and collapse Priority: Primary Status: Acute Comments: Chico Reyes is a 47-year-old male with past medical history depression, chronic pain, HTN and migraines who presented to [facility] on 04/26/2017 with complaints of a syncopal event with fall 2 days prior to presentation and headache. He was placed in observation status for further work-up and treatment. He had a thorough cardiac workup which did not reveal structural heart disease or EKG abnormalities. He was evaluated by Neurology who did not feel symptoms were related to primary neurologic disorder. His headache improved with headache cocktail and he was discharged home in stable condition with outpatient follow-up. Syncope with collapse: episode occurred 2 days prior to presentation while patient was voiding. C-spine xray with no acute fractures. Head CT and brain MRI non-acute. 04/26/17 TTE with EF 60%, no abnormalities. Bilateral carotid dopplers without significant stenosis. Orthostatic BPs without drop in blood pressure. No arrhythmias noted on telemetry. Evaluated by Neurology who did not feel syncopal episode was due to primary neurological disorder. Possibly secondary to situational/micturition syncope or migraine. Patient had no near syncope or syncope recurrence while inpatient. Recommend outpatient follow-up with PCP and or cardiology for further workup. (2) Migraines Priority: Primary Status: Acute Comments: History of migraines in the past. Presented with headache with associated photophobia that started 2 days prior to presentation. CT head, brain MRI negative. Headache improved with headache cocktail. Patient reports not tolerating imitrex in the past due to nausea. Fioricet has helped in the past. Will discharge with 1 week rx for Fiorecet ([facility] reviewed 04/28/17 and no recent opiate/controlled substance rx). Advised to follow-up with PCP in 1-2 weeks. Qualifiers: Migraine type: without aura Status migrainosus presence: without status migrainosus Intractability: not intractable Qualified Code(s): G43.009 - Migraine without aura, not intractable, without status migrainosus (3) Essential hypertension Priority: Primary Status: Acute Comments: per chart review but no on BP medications at home. BP stable and controlled while inpatient. Recommend outpatient follow-up with PCP in 1-2 weeks for BP monitoring - Discharge Medications Prescriptions: Acetaminophen/Butalbital/Caffe [Fioricet] 1 each PO Q12HR PRN #14 tablet PRN Reason: Migraine Headache Home Medications: Acetaminophen/Butalbital/Caffe [Fioricet] 1 each PO Q12HR PRN #14 tablet [Rx] Allergies/Adverse Reactions: 3 Allergy/AdvReac Type Severity Reaction Status Date / Time naproxen Allergy Hives Verified 04/26/17 07:59 Penicillins Allergy Shakiness Verified 04/26/17 07:59 Procedures/tests Complete & Pending: Procedures Performed prior 72 hours Category Date Time Status MR head/brain wo con [MR] Stat MRI 04/27/17 10:32 Completed EV carotid duplex imaging BI Routine Y 04/27/17 14:04 Completed EV echocardiogram Routine Y 04/26/17 11:06 Completed Date of admission: 04/26/17 10:54 Primary care physician: PCP NONE Consults: 04/27/17 09:56 Consult to Neurology [CONS] Routine Consulting Provider: Neurology [facility] Reason for Consult: headache Call Completed: Yes Discharging clinician: Asia Coates Anticipated date of discharge: 04/28/17 - Patient Status Disposition: Home, Self-Care Condition: Good Functional capacity at discharge: independent ambulation Overall status at discharge: patient is back to baseline - Discharge Instructions Follow Up With: NONE,PCP [Primary Care Provider] - - Diet and Activity Activity: resume usual activities as tolerated Diet: advance to your usual diet Interval History: Seen and examined at bedside, says he feels much better today and wants to go home. Uneventful night, no lightheadedness, no dizziness, no further near syncope or syncope. Says he has a little headache but overall much improved. He is requesting rx for Fiorecet, says he has taken in the past with relief in migraine. Says imitrex makes him nauseated. Hospital course: See assessment and plan for hospital course - Time Spent with Patient Total time spent providing and/or coordinating discharge services: Less than 30 minutes - Constitutional Vitals: Temp Pulse Resp BP Pulse Ox 98.4 F 71 16 118/76 98 04/28/17 07:18 04/28/17 07:18 04/28/17 07:18 04/28/17 07:18 04/28/17 07:51 General appearance: Present: A&O X 3 - Head Head exam: Present: atraumatic, normocephalic - Eye Eye exam: Present: PERRL, conjuntiva pink, sclera anicteric Pupils: Present: PERRL - Neck Neck exam general surgery: Present: supple, trachea midline. Absent: lymphadenopathy - Respiratory Respiratory exam: Present: CTAB. Absent: accessory muscle use, rales, rhonchi, wheezes - Cardiovascular Cardiovascular exam: Present: RRR, +S1, +S2. Absent: diastolic murmur, gallop, rubs, systolic murmur - GI/Abdominal GI/Abdominal exam: Present: normal bowel sounds, soft, no peritoneal signs. Absent: distended, tenderness - Extremities Exam Extremities exam: Present: warm, radial pulses palpable and symmetrical. Absent : calf tenderness, cyanotic, pedal edema - Neurological Exam Neurological exam: Present: CN II-XII intact, oriented X3, no focal deficits. Absent: pronater drift, facial droop, speech deficit - Skin Skin exam: Present: dry, intact
== END 2017-04-28 10:04 | disposition home or self-care (01) ==
LOC: EMEROO 07:57 → 3BNU 07:57
PROVIDERS: ADMIT Internal Medicine; ATTEND Registered Nurse

== ENCOUNTER 2017-04-30 17:25 | Observation (INO) ==
--- NOTE | 2017-04-30 18:13 | Emergency Department Note ---
Disposition Clinical Impression: Syncope and collapse Disposition: Admitted As Inpatient Condition: Good Time of Disposition: 19:46 Syncope HPI - General Chief Complaint: ED Syncope Stated Complaint: syncope Time Seen by Provider: 04/30/17 17:27 Source: patient Limitations: no limitations Nursing Notes Reviewed: Yes Vital Signs Reviewed: Yes - History of Present Illness HPI Narrative: 47-year-old male brought in by EMS secondary to syncopal episode one hour ago. Patient states he was walking down a hallway and felt lightheaded and passed out. Patient was found by friends at his house who states they heard a thud and found him lying on the floor. Patient states she has had a headache since he woke up. Patient states his headache is bitemporal and intense at 10/10. Patient had recent episode of syncope 4 days ago which lead to an admission here at [place] [facility] patient was found to have a negative workup and discharge home with diagnosis of vasovagal syncope. Patient states he recently lost a close friend to cancer and has been very emotional. Patient has a history of hypertension patient patient states he has a history of anxiety - Related Data Previous Rx's Medication Instructions Recorded Acetaminophen/Butalbital/Caffe 1 each PO Q12HR PRN #14 tablet 04/28/17 [Fioricet] Allergies Allergy/AdvReac Type Severity Reaction Status Date / Time naproxen Allergy Hives Verified 04/30/17 17:26 Penicillins Allergy Shakiness Verified 04/30/17 17:26 All systems ED: reviewed and negative except as stated. Review of Systems: As Per HPI Constitutional: Denies: fever, chills Eyes: Denies: eye pain, vision change Cardiovascular: Denies: chest pain, palpitations Respiratory: Denies: cough Gastrointestinal: Denies: abdominal pain, nausea, vomiting, diarrhea Genitourinary: Denies: urgency Musculoskeletal: Reports: back pain Integumentary: Denies: rash Neurological: Reports: headache Psychiatric: Reports: anxiety Past Medical History - Past Medical History Attestation: Yes The following information was validated with the patient. Source: patient Medical history: Reports: kidney stones Surgical history: Reports: no surgical history Psychiatric history: Reports: depression, prior suicide attempt, previous psychiatric hospitalization - Social History Smoking Status: Current every day smoker Smokeless Tobacco Status: No Alcohol use: Reports: none Drug use: Reports: marijuana Physical Exam Vital Signs Temperature 98.7 F 04/30/17 17:27 Pulse Rate 81 04/30/17 17:27 Respiratory Rate 18 04/30/17 17:27 Blood Pressure 138/95 04/30/17 17:27 O2 Sat by Pulse Oximetry 16 04/30/17 17:27 Temperature 98.7 F 04/30/17 17:27 Pulse Rate 81 04/30/17 17:27 Respiratory Rate 18 04/30/17 17:27 Blood Pressure 138/95 04/30/17 17:27 O2 Sat by Pulse Oximetry 16 04/30/17 17:27 Oxygen Delivery Oxygen Delivery Room Air Patient is a 47-year-old male who is alert and oriented 3 in no acute distress. Patient has a GCS of 15. Patient is laying in bed in c-collar holding his head and squinting his eyes, he appears to have sensitivities light. Patient has nonfocal neurologic exam, patient able to perform all motions and has no decrease in sensation. Patient able to perform motions across the midline taken his right thumb touching his left ear was eyes are closed and protruding tongue. Patient had a repeat with opposite upper extremity. Patient has equal muscle strength 5/5 in upper and lower extremities. Patient has no pronator drift - General Limitations: no limitations General appearance: alert, in no apparent distress - Head Head exam: atraumatic, normocephalic, normal inspection - Eye Eye exam: Present: normal appearance, PERRL, EOMI - ENT ENT exam: normal exam, normal oropharynx, mucous membranes moist - Neck Neck exam: Present: normal inspection, full ROM, trachea midline, tenderness ( Posterior C-spine tenderness to palpation) - Chest Chest inspection: Present: normal inspection, symmetric chest wall rise - Respiratory Respiratory exam: Present: normal lung sounds bilaterally. Absent: respiratory distress, wheezes - Cardiovascular Cardiovascular exam: Present: regular rate, normal rhythm, normal heart sounds - Abdominal Exam Abdominal exam: Present: soft, Non-Tender. Absent: tenderness, distention, guarding, rebound, rigidity Course - Consultations Consultation #1: Dr. Oscar the hospitalist has accepted patient for admission Time: 19:32 Vital Signs Temperature 98.7 F 04/30/17 17:27 Pulse Rate 81 04/30/17 17:27 Respiratory Rate 18 04/30/17 17:27 Blood Pressure 138/95 04/30/17 17:27 O2 Sat by Pulse Oximetry 16 04/30/17 17:27 Temperature 99.0 F 05/02/17 10:17 Pulse Rate 78 05/02/17 10:51 Respiratory Rate 18 05/02/17 10:17 Blood Pressure 154/81 05/02/17 10:51 O2 Sat by Pulse Oximetry 96 05/02/17 10:17 Oxygen Delivery Oxygen Delivery Room Air Syncope - [facility] Narrative Medical decision making narrative: Patient brought in status post syncopal episode times one hour ago. Patient has previous episodes syncope just earlier this week 4 days ago. Patient is admitted and had negative workup discharge home for vasovagal syncope. Patient complaining of headache and treating his headache symptoms and Tylenol, Benadryl , and Reglan after negative head CT and CT cervical shows no fractures or intracranial abnormalities and no cervical abnormalities. The patient got out of bed without letting anyone know and had another syncopal episode. Patient was found on the ground after he awoke and unable to get up. Plan is to admit patient to hospital for recurrent syncopal episodes Patient was accepted for admission by Dr. Oscar the hospitalist - Lab Data Result diagrams: 05/02/17 05:15 05/02/17 05:15 Lab Results 04/30/17 04/30/17 04/30/17 Range/Units 17:31 18:20 18:20 WBC 7.2 (4.3-11.1) K/mcL RBC 4.66 (4.19-5.50) M/mcL Hgb 14.0 (12.9-16.9) g/dL Hct 41.0 (37.5-50.1) % MCV 88.0 (83.0-100.0) fL MCH 30.0 (28.0-33.3) pg MCHC 34.1 (31.6-35.5) g/dL RDW 13.5 (11.5-14.5) % Plt Count 287 D (140-400) K/mcL MPV 9.0 L (9.4-12.4) fL Immature Gran % 0.3 (0-4) % Seg Neutrophils % 63.2 % Lymphocytes % 29.1 % Monocytes % 5.6 % Eosinophils % 1.7 % Basophils % 0.1 % Neutrophils # 4.6 (1.6-8.9) K/mcL Lymphocytes # 2.1 (0.6-4.6) K/mcL Monocytes # 0.4 (0.0-1.3) K/mcL Eosinophils # 0.1 (0.0-0.6) K/mcL Basophils # 0.0 (0.0-0.2) K/mcL Immature Plt Fraction 2.0 (1.1-6.1) % Sodium 141 (136-145) mEq/L Potassium 4.0 (3.5-4.5) mEq/L Chloride 108 (98-109) mEq/L Carbon Dioxide 26 (19-29) mEq/L BUN 14 (8-26) mg/dL Creatinine 0.97 (0.72-1.25) mg/dL Est GFR ( Amer) > 60 (> 60) Est GFR (Non-Af Amer) > 60 (> 60) BUN/Creatinine Ratio 14 (6-26) Glucose 94 (70-99) mg/dL POC Glucose 93 H (58-89) Calculated Osmolality 292 (280-300) Calcium 9.6 (8.6-10.8) mg/dL Troponin I (0-0.03) ng/mL Urine Opiates Screen (Oxssrz=161) ng/mL Ur Barbiturates Screen (Umpvop=868) ng/mL Ur Phencyclidine Scrn (Cutoff=25) ng/mL Ur Amphetamines Screen (Wqzkpw=7731) ng/mL U Benzodiazepines Scrn (Rgmbkk=391) ng/mL Urine Cocaine Screen (Cutoff= 300) ng/mL U Marijuana (THC) Screen (Cutoff = 50) ng/mL 04/30/17 04/30/17 Range/Units 18:20 19:42 WBC (4.3-11.1) K/mcL RBC (4.19-5.50) M/mcL Hgb (12.9-16.9) g/dL Hct (37.5-50.1) % MCV (83.0-100.0) fL MCH (28.0-33.3) pg MCHC (31.6-35.5) g/dL RDW (11.5-14.5) % Plt Count (140-400) K/mcL MPV (9.4-12.4) fL Immature Gran % (0-4) % Seg Neutrophils % % Lymphocytes % % Monocytes % % Eosinophils % % Basophils % % Neutrophils # (1.6-8.9) K/mcL Lymphocytes # (0.6-4.6) K/mcL Monocytes # (0.0-1.3) K/mcL Eosinophils # (0.0-0.6) K/mcL Basophils # (0.0-0.2) K/mcL Immature Plt Fraction (1.1-6.1) % Sodium (136-145) mEq/L Potassium (3.5-4.5) mEq/L Chloride (98-109) mEq/L Carbon Dioxide (19-29) mEq/L BUN (8-26) mg/dL Creatinine (0.72-1.25) mg/dL Est GFR ( Amer) (> 60) Est GFR (Non-Af Amer) (> 60) BUN/Creatinine Ratio (6-26) Glucose (70-99) mg/dL POC Glucose (58-89) Calculated Osmolality (280-300) Calcium (8.6-10.8) mg/dL Troponin I 0.00 (0-0.03) ng/mL Urine Opiates Screen Negative (Pidrpl=041) ng/mL Ur Barbiturates Screen Positive H (Ustqoi=110) ng/mL Ur Phencyclidine Scrn Negative (Cutoff=25) ng/mL Ur Amphetamines Screen Negative (Cevdjc=9940) ng/mL U Benzodiazepines Scrn Negative (Gefxhx=588) ng/mL Urine Cocaine Screen Negative (Cutoff= 300) ng/mL U Marijuana (THC) Screen Negative (Cutoff = 50) ng/mL - EKG Data EKG attestation: Yes I reviewed and interpreted this EKG. EKG results narrative: EKG taken 04/30/2017 at 1758 hrs. shows sinus rhythm at a rate of 73 beats a minute with no acute ST elevations or depressions and a Leas, no QRS widening or QT prolongation. Previous EKG taken 04/26/2017 also shows sinus rhythm with no acute ST elevations or depressions. No QRS widening or QT population.
[2017-04-30] MEDS ORDERED: Metoclopramide 10 MG/2 ML VIAL IVP ONE (18:24)
[2017-04-30] MEDS ORDERED: 0.9 % Sodium Chloride 1,000 ML IVC ONE (18:24)
[2017-04-30 18:28] LABS: Basophils % 0.1 %; Eosinophils # 0.1 K/mcL (0.0-0.6); Eosinophils % 1.7 %; Immature Granulocytes % 0.3 % (0-4); Lymphocytes # 2.1 K/mcL (0.6-4.6); Lymphocytes % 29.1 %; Mean Corpuscular HGB Conc 34.1 g/dL (31.6-35.5); Monocytes # 0.4 K/mcL (0.0-1.3); Monocytes % 5.6 %; Neutrophils # 4.6 K/mcL (1.6-8.9); Platelet Count 287 K/mcL (140-400); Red Blood Count 4.66 M/mcL (4.19-5.50); Red Cell Distribution Width 13.5 % (11.5-14.5); Segmented Neutrophils % 63.2 %
--- NOTE | 2017-04-30 18:32 | Emergency Department Note ---
START Narrative - START START: I examined this patient and my medical decision-making was reviewed with the [employer] PROFESSIONAL/PA/Advanced Practice Nurse/Resident Physician. I agree with the documented findings, disposition and treatment plan as described except to the extent set forth below. ED attending: Patient's emergency medicine resident Dr. Diana. Please see copy of this note for H&P evaluation and management and ED disposition. We both had independent [id number] time in contact with this patient. Briefly: A 47-year-old male by EMS for syncope. Some mild neck pain. History of vasovagal induced syncope in the past. Patient's neurologic examination is nonfocal GCS 15. Patient's having a CT of the head and C-spine. Screening labs. EKG shows no acute ischemic changes. Labs pending. Disposition pending.
[2017-04-30 18:40] LABS: BUN/Creatinine Ratio 14 (6-26); Blood Urea Nitrogen 14 mg/dL (8-26); Calcium 9.6 mg/dL (8.6-10.8); Carbon Dioxide 26 mEq/L (19-29); Chloride 108 mEq/L (98-109); Glucose 94 mg/dL (70-99); Osmolality,Calculated 292 (280-300); Sodium 141 mEq/L (136-145); eGFR For African Americans > 60 (> 60); eGFR For Non-African Americans > 60 (> 60)
[2017-04-30] MEDS ORDERED: Naloxone 0.4 MG/ML INJ IVP PRN (20:08)
[2017-04-30] MEDS ORDERED: MOM Conc 10 ML UD.LIQ PO PRN (20:08)
[2017-04-30] MEDS ORDERED: Ondansetron 4 MG/2 ML VIAL IVP PRN (20:08)
[2017-04-30 20:26] LABS: Amphetamine Screen,Urine Negative ng/mL (Cutoff=1000); Barbiturate Screen,Urine Positive ng/mL (Cutoff=200); Benzodiazepines Screen,Urine Negative ng/mL (Cutoff=200); Cannabinoid Screen,Urine Negative ng/mL (Cutoff = 50); Cocaine Screen,Urine Negative ng/mL (Cutoff= 300); Opiate Screen,Urine Negative ng/mL (Cutoff=300); Phencyclidine Screen,Urine Negative ng/mL (Cutoff=25)
[2017-04-30 22:24] LABS: INR 0.9; Prothrombin Time 10.1 Seconds (9.4-12.1)
--- NOTE | 2017-05-01 01:09 | Internal Med History&Physical ---
Date of Encounter: 04/30/17 Time of Encounter: 22:30 Assessment and Plan (1) Syncope and collapse Current visit: Yes Status: Acute Will place the pt into Tele for observation Will put him on fall precautions Reviewed all his work up from last admission 3 days ago MRI of BRain, 2 D Echo, Carotid doppler everything came back as negative His syncopal episodes seems most likely behavioral..since he mentioned he lost his job and one of his fried with cancer and he is feeling so anxious and depressed lately Consulted Psych for further eval From medical stand point ..he may need holter monitor for one week upon d/c home for now will keep him on Tele cont close monitoring Daily Ortho stats (2) MDD (major depressive disorder), recurrent episode, severe Current visit: No Status: Acute consulted Psych Qualifiers: Psychotic features: without psychotic features Qualified Code(s): F33.2 - Major depressive disorder, recurrent severe without psychotic features (3) Essential hypertension Current visit: No Status: Acute not on any meds.. BP seems to be stable in 120-130's (4) DVT prophylaxis Current visit: No Status: Acute on Lovenox Q Internal Medicine - H&P: HPI Chief complaint: Syncope / stress Admitted From: Emergency Dept Plans for Post Hospital Care: Home History of present illness: Mr. Reyes is a 47 year old male with past medical history of hypertension panic attacks, depression who lives by himself and lately in lot of stress since he lost his job and feeling severely depressed was admitted here 4 days ago for syncopal episodes and got d/c home on 04/28/17 after all the negative work up, now he was brought into ER by EMS secondary to syncopal episode one hour ago. Patient states he was walking down a hallway and felt lightheaded and passed out. Patient was found by friends at his house who states they heard a thud and found him lying on the floor. Apparently he had another fall in the ER, with out any head injury. Patient states she has had a headache since he woke up. Patient states he recently lost a close friend to cancer and has been very emotional. He denied any CP / SOB Past Med Surg Social Fam HX - Past Medical History Medical history: kidney stones Psychiatric history: depression, prior suicide attempt, previous psychiatric hospitalization - Past Surgical History Surgical History: other - Social History Smoking Status: Current every day smoker Smokeless Tobacco Status: No Alcohol use: none Drug use: marijuana - Family History Father Living Status: Hx Family Cardiac Disorders: Yes Mother Living Status: Still Living Internal Medicine - H&P: Meds Acetaminophen/Butalbital/Caffe [Fioricet] 1 each PO Q12HR PRN #14 tablet [Rx] 3 Allergy/AdvReac Type Severity Reaction Status Date / Time naproxen Allergy Hives Verified 04/30/17 17:26 Penicillins Allergy Shakiness Verified 04/30/17 17:26 All Systems PM: A 10-system review of systems was performed and is negative for pertinent findings except as documented above in the HPI. Review of systems: All the systems are reviewed everything is benign except the systems and symptoms I mentioned in the history of present illness - Constitutional Vitals: Temp Pulse Resp BP Pulse Ox 97.9 F 80 16 137/81 98 04/30/17 22:28 04/30/17 22:28 04/30/17 22:28 04/30/17 22:28 04/30/17 22:28 General appearance: Present: A&O X 3, no acute distress, answers questions appropriately - Head Head exam: Present: atraumatic, normal inspection - Respiratory Respiratory exam: Present: CTAB. Absent: accessory muscle use, rales, rhonchi, wheezes - Cardiovascular Cardiovascular exam: Present: RRR, +S1, +S2. Absent: diastolic murmur, gallop, rubs, systolic murmur - GI/Abdominal GI/Abdominal exam: Present: normal bowel sounds, soft, no peritoneal signs. Absent: distended, tenderness - Extremities Exam Extremities exam: Present: warm, radial pulses palpable and symmetrical. Absent : calf tenderness, cyanotic, pedal edema - Back Exam Back exam: Absent: CVA tenderness (L), CVA tenderness (R) - Neurological Exam Neurological exam: Present: alert, CN II-XII intact, oriented X3, reflexes normal, no focal deficits, strengths equal and symetr throughout. Absent: pronater drift, facial droop, speech deficit - Psychiatric Psychiatric exam: Present: depressed (and emotional). Absent: homicidal ideation, suicidal ideation - Skin Skin exam: Present: intact. Absent: rash Internal Med - H&P Results - Labs CBC & Chem 7: 04/30/17 18:20 10/06/17 18:20
[2017-05-01] MEDS: *HR* Enoxaparin 40 MG/0.4 ML SYRINGE SQ SCH (05:58)
[2017-05-01] MEDS: Acetaminophen/Butalbital/CaffeineTABLET PO PRN ×2 (06:01→18:16)
--- NOTE | 2017-05-01 12:10 | Consult Note ---
Date of Encounter: 05/01/17 Time of Encounter: 11:00 Assessment & Recommendation (1) MDD (major depressive disorder), recurrent episode, severe Current visit: No Status: Acute Assessment & Recommendation: patient is severly depressed and hopeless , he has past 4 suicide attempts, need inpatient for stabilization Qualifiers: Psychotic features: without psychotic features Qualified Code(s): F33.2 - Major depressive disorder, recurrent severe without psychotic features (2) Anxiety Current visit: Yes Status: Acute Assessment & Recommendation: start lexapro 10 mg po am and inpatient stabilization (3) Syncope and collapse Current visit: Yes Status: Acute History of Present Illness Requesting Physician: Asia Coates CNP Reason for consult: severe depression with syncopal episodes. History of present illness: Mr. Reyes is a 47 year old male who was consulted today for depression and syncopal episodes. Per records he has h/o Depression , anxiety , suicidal attempts, HTN , panic attacks , patient was recently d/c on 04/28/17, after negative work up for syncopal episode. he had been having lot of stress and multiple losses , his friend recently of cancer , left after cheating on him, lost his job,brother in MVA couple months ago. Patient at present was crying in session, depress, hopeless and worthless feelings, lack of motivation , no plan to hurt self but can not contract for safety. He has h/o inpatient hospitalization and 4 suicidal attempts in past last one was 03/10. he was on wellbutrin and gabapentin. he states having syncopal attacks , also when extremely anxious. A/P Major depressive disorder severe withou psychotic features Anxiety disorder. SYncopal attacks , as per chart negative work up. once medically cleared Patient at present need inpatient psychiatric hospitalization for stability start lexapro 10 mg Gabapentin 100 mg tid. Thank you for consult. . CC: Asia Coates CNP Past Med Surg Social Fam HX - Past Medical History Medical history: kidney stones - Past Psychiatric History Psychiatric history: Reports: anxiety, depression, prior suicide attempt, previous psychiatric hospitalization Family psychiatric history: Unknown Family History of Suicide: None - Past Surgical History Surgical History: other - Social History Smoking Status: Current every day smoker Smokeless Tobacco Status: No Alcohol use: none Drug use: marijuana - Family History Father Living Status: Hx Family Cardiac Disorders: Yes Mother Living Status: Still Living Medications & Allergies Acetaminophen/Butalbital/Caffe [Fioricet] 1 each PO Q12HR PRN #14 tablet [Rx] 3 Allergy/AdvReac Type Severity Reaction Status Date / Time naproxen Allergy Hives Verified 04/30/17 17:26 Penicillins Allergy Shakiness Verified 04/30/17 17:26 Review of Systems Psychiatric: Reports: depression, anxiety, anhedonia, difficulty concentrating, hopelessness, panic attacks Mental Status Exam Patient orientation: Yes Person, Yes Time, Yes Place Level of alertness: Alert Patient appearance: Appropriate Behavior: cooperative, anxious, tearful Psychomotor activity: Slowed Eye contact: Maintains Eye Contact Mood description: Depressed, Anxious Affect description: tearful, dysphoric, anxious Speech pattern: Slowed Speech volume: Soft/Quiet Thought content: Yes Suicidal ideation, Yes Guilt Attention span: Unable to Focus, Unable to Sustain Attention Memory description: Grossly Intact Patient reliability: Reliable Historian Intelligence estimate: Average Judgment: Limited Insight: Partial Results - Vital Signs Vital signs: Temp Pulse Resp BP Pulse Ox 98.4 F 85 15 129/84 97 05/01/17 11:03 05/01/17 11:03 05/01/17 11:03 05/01/17 11:03 05/01/17 11:03 - Drug Levels and Toxicology Drug Levels and Toxicology: Drug Levels and Toxicity 04/30/17 21:50 Ethyl Alcohol < 10 - Labs Labs: Laboratory Last Values WBC 7.2 K/mcL (4.3-11.1) 04/30/17 18:20 RBC 4.66 M/mcL (4.19-5.50) 04/30/17 18:20 Hgb 14.0 g/dL (12.9-16.9) 04/30/17 18:20 Hct 41.0 % (37.5-50.1) 04/30/17 18:20 MCV 88.0 fL (83.0-100.0) 04/30/17 18:20 MCH 30.0 pg (28.0-33.3) 04/30/17 18:20 MCHC 34.1 g/dL (31.6-35.5) 04/30/17 18:20 RDW 13.5 % (11.5-14.5) 04/30/17 18:20 Plt Count 287 K/mcL (140-400) D 04/30/17 18:20 MPV 9.0 fL (9.4-12.4) L 04/30/17 18:20 Immature Gran % 0.3 % (0-4) 04/30/17 18:20 Seg Neutrophils % 63.2 % 04/30/17 18:20 Lymphocytes % 29.1 % 04/30/17 18:20 Monocytes % 5.6 % 04/30/17 18:20 Eosinophils % 1.7 % 04/30/17 18:20 Basophils % 0.1 % 04/30/17 18:20 Neutrophils # 4.6 K/mcL (1.6-8.9) 04/30/17 18:20 Lymphocytes # 2.1 K/mcL (0.6-4.6) 04/30/17 18:20 Monocytes # 0.4 K/mcL (0.0-1.3) 04/30/17 18:20 Eosinophils # 0.1 K/mcL (0.0-0.6) 04/30/17 18:20 Basophils # 0.0 K/mcL (0.0-0.2) 04/30/17 18:20 Immature Plt Fraction 2.0 % (1.1-6.1) 04/30/17 18:20 PT 10.1 Seconds (9.4-12.1) 04/30/17 21:50 INR 0.9 04/30/17 21:50 Sodium 141 mEq/L (136-145) 04/30/17 18:20 Potassium 4.0 mEq/L (3.5-4.5) 04/30/17 18:20 Chloride 108 mEq/L (98-109) 04/30/17 18:20 Carbon Dioxide 26 mEq/L (19-29) 04/30/17 18:20 BUN 14 mg/dL (8-26) 04/30/17 18:20 Creatinine 0.97 mg/dL (0.72-1.25) 04/30/17 18:20 Est GFR ( Amer) > 60 (> 60) 04/30/17 18:20 Est GFR (Non-Af Amer) > 60 (> 60) 04/30/17 18:20 BUN/Creatinine Ratio 14 (6-26) 04/30/17 18:20 Glucose 94 mg/dL (70-99) 04/30/17 18:20 POC Glucose 93 (58-89) H 04/30/17 17:31 Calculated Osmolality 292 (280-300) 04/30/17 18:20 Calcium 9.6 mg/dL (8.6-10.8) 04/30/17 18:20 Troponin I 0.00 ng/mL (0-0.03) 04/30/17 18:20 Urine Opiates Screen Negative ng/mL (Fydgby=740) 04/30/17 19:42 Ur Barbiturates Screen Positive ng/mL (Nhssyb=496) H 04/30/17 19:42 Ur Phencyclidine Scrn Negative ng/mL (Cutoff=25) 04/30/17 19:42 Ur Amphetamines Screen Negative ng/mL (Jtzhkn=9925) 04/30/17 19:42 U Benzodiazepines Scrn Negative ng/mL (Zdqvmz=955) 04/30/17 19:42 Urine Cocaine Screen Negative ng/mL (Cutoff= 300) 04/30/17 19:42 U Marijuana (THC) Screen Negative ng/mL (Cutoff = 50) 04/30/17 19:42 Ethyl Alcohol < 10 mg/dL (0-10) 04/30/17 21:50 Consult Discharge Plan - Plan Referrals: NONE,PCP [Primary Care Provider] -
--- NOTE | 2017-05-01 15:58 | Internal Med Progress Note ---
Date of Encounter: 05/01/17 Time of Encounter: 15:53 - Assessment and plan (1) Syncope and collapse Current Visit: Yes Status: Acute (2) MDD (major depressive disorder), recurrent episode, severe Current Visit: No Status: Acute Assessment and plan: Chico Reyes is a 47-year-old male with past medical history depression, chronic pain, HTN and migraines recently discharged for syncope who presented to [facility] on 04/30/2017 with complaints of recurrent syncopal event with loss of consciousness. He was placed in observation status for further workup and treatment. 1. Syncope with collapse: Recently hospitalized for exact symptoms. Previous workup included negative C-spine xray. Negative Head CT and brain MRI. 04/26/17 TTE with EF 60%, no abnormalities. Bilateral carotid dopplers without significant stenosis. Orthostatic BPs without drop in blood pressure. No arrhythmias noted on telemetry. He was evaluated by Neurology at that time who did not feel syncopal episode was due to primary neurological disorder. Now with 2 episodes of syncope with loss of consciousness. One episode occurred while in the emergency room; unknown if he was on telemetry at that time. Differentials include cardiac, psychiatric etiology. Continue to monitor on telemetry for now. See #2 for psychiatric workup 2. Major depression disorder: hx depression. Evaluated by psychiatry who noted patient is severely depressed and hopeless; needs inpatient for stabilization. Plan for transfer to once medically cleared 3. Migraines: per hx. continue home Fioricet 4. Hypertension: per chart review but no on BP medications at home. BP controlled off antihypertensives. Monitor BP and initiate BP medication if needed 5. DVT prophylaxis: Lovenox Qualifiers: Psychotic features: without psychotic features Qualified Code(s): F33.2 - Major depressive disorder, recurrent severe without psychotic features (3) Essential hypertension Current Visit: No Status: Acute (4) DVT prophylaxis Current Visit: No Status: Acute - Subjective Interval history: Seen and examined at bedside. Patient is known to me from recent hospitalization. Patient tells me he had another episode where he passed out, and his friends found him. Per ED notes, patient got up by itself in ER and was found on the floor. He has a headache otherwise has no complaints. He denies lightheadedness, no dizziness. No chest pain, no shortness of breath. - Constitutional Vitals: Temp Pulse Resp BP Pulse Ox 97.5 F L 80 15 130/89 96 05/01/17 15:31 05/01/17 15:31 05/01/17 15:31 05/01/17 15:31 05/01/17 15:31 General appearance: Present: A&O X 3, no acute distress, answers questions appropriately - Head Head exam: Present: atraumatic, normocephalic - Eye Eye exam: Present: PERRL, conjuntiva pink, sclera anicteric Pupils: Present: PERRL - Neck Neck exam general surgery: Present: supple, trachea midline. Absent: lymphadenopathy - Respiratory Respiratory exam: Present: CTAB. Absent: accessory muscle use, rales, rhonchi, wheezes - Cardiovascular Cardiovascular exam: Present: RRR, +S1, +S2. Absent: diastolic murmur, gallop, rubs, systolic murmur - GI/Abdominal GI/Abdominal exam: Present: normal bowel sounds, soft, no peritoneal signs. Absent: distended, tenderness - Extremities Exam Extremities exam: Present: warm, radial pulses palpable and symmetrical. Absent : calf tenderness, cyanotic, pedal edema - Neurological Exam Neurological exam: Present: CN II-XII intact, oriented X3, no focal deficits. Absent: pronater drift, facial droop, speech deficit - Skin Skin exam: Present: dry, intact Internal Medicine: Result - Labs CBC & Chem 7: 04/30/17 18:20 04/30/17 18:20 - ABG Interpretation ABG results: PT/INR, D-dimer PT 10.1 Seconds (9.4-12.1) 04/30/17 21:50 Consult Discharge Plan - Plan Referrals: NONE,PCP [Primary Care Provider] -
[2017-05-01] MEDS: Gabapentin 100 MG CAPSULE PO SCH (20:44)
[2017-05-01] MEDS ORDERED: *HR* LORazepam 0.5 MG TABLET PO ONE (20:54)
[2017-05-02] MEDS: *HR* Enoxaparin 40 MG/0.4 ML SYRINGE SQ SCH (05:25)
[2017-05-02 06:22] LABS: Hematocrit 40.1 % (37.5-50.1); Hemoglobin 13.6 g/dL (12.9-16.9); Mean Corpuscular HGB Conc 33.9 g/dL (31.6-35.5); Mean Corpuscular Hemoglobin 29.8 pg (28.0-33.3); Mean Corpuscular Volume 87.7 fL (83.0-100.0); Mean Platelet Volume 9.2 fL (9.4-12.4); Platelet Count 250 K/mcL (140-400); Red Blood Count 4.57 M/mcL (4.19-5.50); Red Cell Distribution Width 13.5 % (11.5-14.5)
[2017-05-02 06:34] LABS: Alanine Aminotransferase 13 Units/L (0-55); Albumin 3.6 g/dL (3.5-5.0); Albumin/Globulin Ratio 1.3 (1.1-2.2); Alkaline Phosphatase 87 Units/L (38-126); Aspartate Amino Transferase 11 Units/L (5-34); BUN/Creatinine Ratio 9 (6-26); Bilirubin,Total 0.3 mg/dL (0.2-1.2); Blood Urea Nitrogen 9 mg/dL (8-26); Calcium 8.9 mg/dL (8.6-10.8); Carbon Dioxide 26 mEq/L (19-29); Chloride 109 mEq/L (98-109); Globulin 2.7 g/dL (2.4-3.5); Glucose 88 mg/dL (70-99); Osmolality,Calculated 292 (280-300); Potassium 3.7 mEq/L (3.5-4.5); Sodium 142 mEq/L (136-145); Total Protein 6.3 g/dL (6.0-8.3); eGFR For African Americans > 60 (> 60); eGFR For Non-African Americans > 60 (> 60)
--- NOTE | 2017-05-02 07:58 | Cardiology Consult Note ---
Date of Encounter: 05/02/17 Time of Encounter: 07:55 Assessment and Plan (1) Syncope and collapse Current Visit: Yes Status: Acute Per Cardiology: Reports 3 unwitnessed syncopal events. Troponin negative. Recent echo with preserved EF, no significant valvular dysfunction, NSWMA. Recent carotid duplex bilateral carotids normal. Telemetry reviewed with average heart rate 71, no significant positives or events noted and slowest heart rate 50 during nocturnal hours. Orthostatics pending. Tox screen + for barbiturates. Patient has pending inpatient psych admission. No further recs from cardiac standpoint. Discussed with Dr. Hein, will s/o, re-consult PRN, f/u as outpatient-- can consider Tilt Table as outpatient. (2) MDD (major depressive disorder), recurrent episode, severe Current Visit: No Status: Acute Per Cardiology: Followed by psychiatry. Multiple past suicide attempts. Qualifiers: Psychotic features: without psychotic features Qualified Code(s): F33.2 - Major depressive disorder, recurrent severe without psychotic features Discussion w patient/family: The assessment and plan as outlined above was discussed with the patient who expressed understanding and agreement. All questions were answered. Thank you for involving us in the care of your patient. Please call with any questions. History of Present Illness Consult date: 05/02/17 Consult reason: Syncope History of present illness: Previous records reviewed: "Mr. Reyes is a 47 year old male who was consulted today for depression and syncopal episodes. Per records he has h/o Depression , anxiety , suicidal attempts, HTN , panic attacks , patient was recently d/c on 04/28/17, after negative work up for syncopal episode. He had been having lot of stress and multiple losses, his friend recently of cancer, left after cheating on him, lost his job, brother in MVA couple months ago". Cardiology C/S for eval of syncope. Patient confirms the above information. He reports multiple recent stressors. He reports 3 episodes of experiencing dizziness/lightheadedness while standing with loss of consciousness and falls. All 3 episodes have been unwitnessed. All 3 events appear to have occurred after standing for quite some time. He denies any awareness to seizure-like activity. Denies any loss of bowel or bladder. He denies any chest pain, palpitations, shortness of breath. Denies hypothyroidism or DM. Past Med Surg Social Fam HX - Past Medical History Attestation: Yes The following information was validated with the patient. Source: patient, old records reviewed Medical history: hypertension, kidney stones Psychiatric history: anxiety, depression, prior suicide attempt, previous psychiatric hospitalization - Past Surgical History Surgical History: other - Social History Smoking Status: Current every day smoker Smokeless Tobacco Status: No Alcohol use: none Drug use: marijuana - Family History Father Living Status: Hx Family Cardiac Disorders: Yes Mother Living Status: Still Living Medications and Allergies Acetaminophen/Butalbital/Caffe [Fioricet] 1 each PO Q12HR PRN #14 tablet [Rx] 3 Allergy/AdvReac Type Severity Reaction Status Date / Time naproxen Allergy Hives Verified 04/30/17 17:26 Penicillins Allergy Shakiness Verified 04/30/17 17:26 All Systems Review: A 10-system review of systems was performed and is negative for pertinent findings except as documented above in the HPI. - Cardiovascular Cardiovascular: as per HPI, lightheadedness Physical Examination Vital Signs, Last 4 Hours Temp Pulse Resp BP Pulse Ox 05/02/17 07:44 98.8 F 74 15 130/90 97 General: Conversant, No Apparent Distress HEENT: Atraumatic, Normocephaly, Mucus Membranes Moist Neck: No JVD, Normal carotid pulses Cardiac: Reg Rate and Rhythm, Normal S1 and S2, No Murmur Lungs: Normal Breath Sounds, No Wheeze, Rales, Rhonchi Neuro: Alert and responsive, No focal deficits noted, Other (somehwat tearful) Abdomen: Soft, Non-Tender Skin: No rashes noted on visualized skin Musculoskeletal: No Chest Wall Tenderness Extremities: No Clubbing, No Cyanosis, No Edema, Normal Pulses Results 05/02/17 05:15 05/02/17 05:15 Lab Results Laboratory Tests 04/30/17 04/30/17 04/30/17 18:20 19:42 21:50 INR 0.9 AST ALT Troponin I 0.00 Urine Opiates Screen Negative Ur Barbiturates Screen Positive H Ur Phencyclidine Scrn Negative Ur Amphetamines Screen Negative U Benzodiazepines Scrn Negative Urine Cocaine Screen Negative U Marijuana (THC) Screen Negative Ethyl Alcohol 04/30/17 05/02/17 21:50 05:15 INR AST 11 ALT 13 Troponin I Urine Opiates Screen Ur Barbiturates Screen Ur Phencyclidine Scrn Ur Amphetamines Screen U Benzodiazepines Scrn Urine Cocaine Screen U Marijuana (THC) Screen Ethyl Alcohol < 10 ITS Impressions Chest X-Ray 04/30/17 17:28 IMPRESSION: No acute process. D/ / Cayetano Reddy MD / Cayetano Reddy MD Interpreting Provider: Cayetano Reddy MD Cervical Spine CT 04/30/17 17:43 IMPRESSION: No acute abnormality of the cervical spine. D/ / Carrie Carroll Cha, MD / Carrie Carroll Cha, MD Interpreting Provider: Carrie Carroll Cha, MD Head CT 04/30/17 17:43 IMPRESSION: No acute intracranial abnormality. D/ / Carrie Carroll Cha, MD / Carrie Carroll Cha, MD Interpreting Provider: Carrie Carroll Cha, MD Active Medications Acetaminophen/Butalbital/Caffeine (Fioricet) 1 each PO Q12HR PRN; Protocol PRN Reason: Migraine Headache Stop: 10/30/17 20:12 Last Admin: 05/01/17 18:16 Dose: 1 each Docusate Sodium (Colace) 100 mg PO BID PRN PRN Reason: Constipation Stop: 10/30/17 20:09 Enoxaparin Sodium (Lovenox) 40 mg SQ 0600 ELPIDIO PRN Reason: Protocol Stop: 10/31/17 06:01 Last Admin: 05/02/17 05:25 Dose: 40 mg Escitalopram Oxalate (Lexapro) 10 mg PO DAILY ELPIDIO Stop: 11/01/17 09:01 Gabapentin (Neurontin) 100 mg PO TID ELPIDIO Stop: 10/31/17 21:01 Last Admin: 05/01/17 20:44 Dose: 100 mg Magnesium Hydroxide (Milk Of Magnesia Conc) 10 ml PO DAILY PRN PRN Reason: Indigestion Stop: 10/30/17 20:09 Naloxone HCl (Narcan) 0.4 mg IVP Q2MIN PRN PRN Reason: Opioid Reversal Stop: 10/30/17 20:09 Ondansetron HCl (Zofran) 4 mg IVP Q8HR PRN PRN Reason: Nausea And Vomiting Stop: 10/30/17 20:09 - Imaging and Cardiology Chest Xray: report reviewed Echo: report reviewed (Impressions: Normal LV systolic function, LVEF 60%. Normal left ventricular diastolic function. Normal right ventricular size and function. No significant valvular dysfunction. Left Ventricular Wall Motion: Rest Echo Findings All wall segments showed normal motion.) Other Results: Bilateral CD normal - EKG Interpretation EKG results cardiology: personally reviewed, normal ECG, sinus rhythm, no diagnostic ischemia, other (24-hour telemetry reviewed with average heart rate 71, sinus rhythm, no significant pauses or evidence noted, slowest heart rate 50 during nocturnal hours) Consult Discharge Plan - Plan Referrals: NONE,PCP [Primary Care Provider] -
[2017-05-02] MEDS: Gabapentin 100 MG CAPSULE PO SCH ×2 (08:17→14:27)
[2017-05-02 10:18] VITALS: BP 154/81
[2017-05-02] MEDS: Acetaminophen/Butalbital/CaffeineTABLET PO PRN (12:08)
--- NOTE | 2017-05-02 13:27 | Discharge Summary ---
Date of Encounter: 05/02/17 Time of Encounter: 13:23 - Discharge Diagnosis (1) Syncope and collapse Priority: Primary Status: Acute Comments: Chico Reyes is a 47-year-old male with past medical history depression, chronic pain, HTN and migraines recently discharged for syncope who presented to [facility] on 04/30/2017 with complaints of recurrent syncopal event with loss of consciousness. He was placed in observation status for further workup and treatment. He was evaluated by cardiology with no cardiogenic source suspected. He was also evaluated by psychiatry who recommended inpatient psychiatric treatment. [facility]. 1. Syncope with collapse: Recently hospitalized for exact symptoms. Previous workup included negative C-spine xray. Negative Head CT and brain MRI. 04/26/17 TTE with EF 60%, no abnormalities. Bilateral carotid dopplers without significant stenosis. Orthostatic BPs without drop in blood pressure. No arrhythmias noted on telemetry. He was evaluated by Neurology at that time who did not feel syncopal episode was due to primary neurological disorder. Now with 2 episodes of syncope with loss of consciousness. One episode occurred while in the emergency room; no telemetry strips noted of syncopal event and emergency room. No evidence of orthostatic hypotension, no arrhythmia on telemetry review. Evaluated by cardiology who noted no acute cardiac intervention required this time, recommends an event monitor at discharge. Event monitor will need to be arranged once discharged from inpatient psychiatric unit. Can follow-up outpatient with Cardiology 2. Major depression disorder: hx depression. Evaluated by psychiatry who noted patient is severely depressed and hopeless; needs inpatient for stabilization. Patient is medically cleared and plan for transfer to once bed available. 3. Migraines: per hx. continue home Fioricet 4. Hypertension: per chart review but no on BP medications at home. BP controlled off antihypertensives. Monitor BP and initiate BP medication if needed 5. DVT prophylaxis: Lovenox (2) MDD (major depressive disorder), recurrent episode, severe Priority: Primary Status: Acute Qualifiers: Psychotic features: without psychotic features Qualified Code(s): F33.2 - Major depressive disorder, recurrent severe without psychotic features (3) Essential hypertension Priority: Primary Status: Acute - Discharge Medications Home Medications: Acetaminophen/Butalbital/Caffe [Fioricet] 1 each PO Q12HR PRN #14 tablet [Rx] Allergies/Adverse Reactions: 3 Allergy/AdvReac Type Severity Reaction Status Date / Time naproxen Allergy Hives Verified 04/30/17 17:26 Penicillins Allergy Shakiness Verified 04/30/17 17:26 Procedures/tests Complete & Pending: Procedures Performed prior 72 hours Category Date Time Status ECG event monitor 4 weeks [ECG] Routine Y 05/02/17 09:51 Ordered Date of admission: 04/30/17 19:43 Primary care physician: PCP NONE Consults: 04/30/17 20:10 Consult to Occupational Therapy [CONS] Routine Comment: Evaluate, develop and implement POC Reason for Consult: syncope Consult to Physical Therapy [CONS] Routine Comment: Evaluate, develop and implement POC Reason for Consult: syncope Consult to L[employer] Material [employer] [CONS] Routine Reason for SW Consult: Depression / social issues at home.. recurrent admissions 05/01/17 01:04 Consult to Psychiatry [CONS] Routine Consulting Provider: Psychiatry [place] Reason for Consult: Severe depression with frequent syncopal episodes Call Completed: Yes 05/01/17 15:51 Consult to Cardiology [CONS] Routine Comment: Consulting Provider: Cardiology [place] Reason for Consult: syncope with collapse Call Completed: Yes Discharging clinician: Asia Coates Anticipated date of discharge: 05/02/17 - Patient Status Disposition: Transfer Psychiatric Hosp Condition: Good Functional capacity at discharge: independent ambulation Overall status at discharge: patient is back to baseline - Discharge Instructions Follow Up With: NONE,PCP [Primary Care Provider] - - Diet and Activity Activity: resume usual activities as tolerated Diet: advance to your usual diet Interval History: Seen and examined at bedside. No acute changes and assessment report. Patient does say that he feels very depressed and lonely. He is aware plan to transfer to one a once that is available. Says he has intermittent headache which is helped with his Fioricet. Denies chest pain, no shortness of breath. No further syncopal events. Hospital course: See assessment and plan for hospital course - Time Spent with Patient Total time spent providing and/or coordinating discharge services: Less than 30 minutes - Constitutional Vitals: Temp Pulse Resp BP Pulse Ox 99.0 F 78 18 154/81 96 05/02/17 10:17 05/02/17 10:51 05/02/17 10:17 05/02/17 10:51 05/02/17 10:17 General appearance: Present: A&O X 3, no acute distress, answers questions appropriately - Head Head exam: Present: atraumatic, normocephalic - Eye Eye exam: Present: PERRL, conjuntiva pink, sclera anicteric Pupils: Present: PERRL - Neck Neck exam general surgery: Present: supple, trachea midline. Absent: lymphadenopathy - Respiratory Respiratory exam: Present: CTAB. Absent: accessory muscle use, rales, rhonchi, wheezes - Cardiovascular Cardiovascular exam: Present: RRR, +S1, +S2. Absent: diastolic murmur, gallop, rubs, systolic murmur - GI/Abdominal GI/Abdominal exam: Present: normal bowel sounds, soft, no peritoneal signs. Absent: distended, tenderness - Extremities Exam Extremities exam: Present: warm, radial pulses palpable and symmetrical. Absent : calf tenderness, cyanotic, pedal edema - Neurological Exam Neurological exam: Present: CN II-XII intact, oriented X3, no focal deficits. Absent: pronater drift, facial droop, speech deficit - Skin Skin exam: Present: dry, intact
--- NOTE | 2017-05-03 18:23 | Electrocardiograph Report ---
[place] [id number] Test Date: 2017-04-30 Pat Name: Chico Reyes Department: 102 Room: 3B Gender: M [employer]: Ekp : 1970 Requested By: Roque Torres Order Number: [id number] Reading MD: Garett Hein MD Measurements Intervals [place] Rate: 73 P: 32 NM: 162 QRS: -1 QRSD: 95 T: 44 QT: 334 QTc: 360 Interpretive Statements SINUS RHYTHM Electronically Signed On 05-03-2017 18:21:51 EDT by Garett Hein MD
== END 2017-05-02 15:14 ==
LOC: EMEROO 17:25 → 3ANU 17:25 → 3BNU 20:42
PROVIDERS: ADMIT Pediatrics; ATTEND Registered Nurse

== ENCOUNTER 2017-05-02 15:12 | Inpatient (IN) ==
[2017-05-02] MEDS ORDERED: MOM Conc 10 ML UD.LIQ PO PRN (15:45)
[2017-05-02] MEDS ORDERED: *HR* LORazepam 2 MG/ML VIAL IM PRN (15:45)
[2017-05-02] MEDS ORDERED: *HR* LORazepam 1 MG TABLET PO PRN (15:45)
[2017-05-02] MEDS ORDERED: Haloperidol Lactate 5 MG/ML VIAL IM PRN (15:45)
[2017-05-02] MEDS ORDERED: Mag Hydrox/Al Hydrox/Simeth 30 ML UDC PO PRN (15:45)
[2017-05-02] MEDS ORDERED: Acetaminophen 325 MG TABLET PO PRN (15:45)
[2017-05-02] MEDS: traZODone 50 MG TABLET PO PRN (20:59)
[2017-05-02] MEDS: Gabapentin 100 MG CAPSULE PO SCH (21:44)
[2017-05-03] MEDS: Gabapentin 100 MG CAPSULE PO SCH ×3 (08:39→21:10)
--- NOTE | 2017-05-03 11:31 | Psychiatry History & Physical ---
Date of Encounter: 05/03/17 Time of Encounter: 11:25 History of Present Illness Patient Stated Chief Complaint: depression and anxiety Medicare Admission Attestation: For traditional Medicare patients the provided hospital inpatient services are reasonable and necessary and in the case of services not specified as inpatient -only under 42 CFR 419.22 (n), that they are appropriately provided as inpatient services in accordance 42 CFR 412.3. For Critical Access Hospital the patient may reasonably be expected to be discharged or transferred to a hospital within 96 hours after admission to the Critical Access Hospital. Admitted From: Home Plans for Post Hospital Care: Home History of Present Illness: Mr. Reyes is a 47 year old male who was transferred from a medical floor after he was admitted there for syncopal episodes. "Blackouts" felt to be related to anxiety. On eval today he is tearful. Reports multiple life stressors including the recent lost of a friend to cancer and a brother in a car accident. Lost another brother in February of last year. Recently lost job and two sons won't talk to him. History of suicide attempts. Claims he won't make another attempt because he has children but still feels completely overwhelmed. Denies physical health problems. Previous addiction to pain pills but denies recent substance abuse issues. Linked with services a year ago but no treatment in last year. Claims he was previously treated with Wellbutrin and it really helped him. Started on Lexapro this time without any real benefit yet. Will add Wellbutrin since it works differently from Lexapro and given client's prior success with it. Past Med Surg Social Fam HX - Past Medical History Medical history: hypertension, kidney stones - Past Psychiatric History Psychiatric history: Reports: anxiety, depression, prior suicide attempt, previous psychiatric hospitalization Family psychiatric history: Unknown Family History of Suicide: Unknown - Past Surgical History Surgical History: other - Social History Smoking Status: Former smoker Smokeless Tobacco Status: No Alcohol use: none Drug use: marijuana - Family History Father Living Status: Hx Family Cardiac Disorders: Yes Mother Living Status: Still Living Medications & Allergies Acetaminophen/Butalbital/Caffe [Fioricet] 1 each PO Q12HR PRN #14 tablet [Rx] 3 Allergy/AdvReac Type Severity Reaction Status Date / Time naproxen Allergy Hives Verified 04/30/17 17:26 Penicillins Allergy Shakiness Verified 04/30/17 17:26 Review of Systems Constitutional: Denies: fever, chills, weakness, weight change Eyes: Denies: eye pain, vision change Ears, Nose, Throat: Denies: ear pain, throat pain, dental pain, hearing loss, congestion Cardiovascular: Denies: chest pain, palpitations, dyspnea on exertion Respiratory: Denies: cough, dyspnea, wheezes Gastrointestinal: Denies: abdominal pain, nausea, vomiting, diarrhea, constipation Genitourinary male: Denies: urgency, dysuria, frequency, genital lesions Genitourinary female: Denies: urgency, dysuria, frequency, abnormal menses, dyspareunia Musculoskeletal: Denies: joint swelling, joint pain Integumentary: Denies: rash, lesions, pruritus Neurological: Denies: headache, weakness, numbness, memory loss Endocrine: Denies: fatigue, heat or cold intolerance Hematologic/Lymphatic: Denies: easy bruising, lymphadenopathy Allergic/Immunologic: Denies: urticaria, itchy eyes Mental Status Exam Patient orientation: Yes Person, Yes Time, Yes Place Level of alertness: Alert Patient appearance: Unkempt Behavior: calm, cooperative Psychomotor activity: Normal Eye contact: Maintains Eye Contact Mood description: Depressed Affect description: tearful Speech volume: Soft/Quiet Thought process: Logical Thought content: No Suicidal ideation, No Homicidal ideation, No Overt delusions Perceptual disturbances: Yes Reacting to internal stimuli Attention span: Capable of Focused Attention Memory description: Grossly Intact Patient reliability: Reliable Historian Intelligence estimate: Below Average Judgment: Fair Insight: Partial Exam - HEENT Head exam IM: Present: atraumatic Eye exam IM: Present: EOMI ENT exam IM: Present: mucous membranes moist - Neurological Neurological exam IM: Present: oriented X3 - Respiratory Respiratory exam IM: Present: CTAB - GI/Abdominal GI/Abdominal exam IM: Present: normal bowel sounds - Extremities Extremities exam IM: Present: full ROM - Skin Skin exam IM: Present: normal color Results - Vital Signs Vital signs: Temp Pulse Resp BP 98 F 73 18 130/85 05/03/17 09:00 05/03/17 09:00 05/03/17 09:00 05/03/17 09:00 Assessment and Plan (1) Depression Current visit: No Status: Acute Plan: Admit inpatient for safety and stabilization, Close observation, Suicide Precautions per unit protocol, Encourage participation in unit milieu, Group Therapy, Monitor sleep, Monitor appetite Risks, benefits, side effects, alternatives discussed w/pt: Yes Patient agreeable to treatment: Yes Plans for Post Hospital Care: Home Estimated Length of Stay (Days): 4 Qualifiers: Depression Type: major depressive disorder Major depression recurrence: recurrent Active/Remission status: currently active Major depression episode severity: severe Psychotic features: without psychotic features Qualified Code(s): F33.2 - Major depressive disorder, recurrent severe without psychotic features
[2017-05-03] MEDS: Acetaminophen/Butalbital/CaffeineTABLET PO PRN (12:31)
[2017-05-03] MEDS: hydrOXYzine pamoate 25 MG CAPSULE PO PRN (18:51)
[2017-05-03] MEDS: traZODone 50 MG TABLET PO PRN (22:27)
[2017-05-04] MEDS: Acetaminophen/Butalbital/CaffeineTABLET PO PRN ×2 (06:30→20:12)
[2017-05-04] MEDS: Gabapentin 100 MG CAPSULE PO SCH ×3 (07:55→20:13)
--- NOTE | 2017-05-04 14:03 | Psychiatry Progress Note ---
Date of Encounter: 05/04/17 Time of Encounter: 13:56 Subjective Interval history: Continues to endorse depressed mood. States he had nightmares last night and told staff this morning he had a headache. Putting forth a good effort. Attends and participate in groups. Tends to be a follower and he is currently distracted by some of the antisocial behaviors of others on the unit. However, overall, he is making progress. Stated today he previously took Wellbutrin and felt this medication helped more than the others. Interested in restarting it. Denies any history of seizures. He does not remember why it was stopped. Also complaining of poor sleep. Has taken Trazodone for years with limited benefit. Discussed Melatonin as an alternative. Still plans to live with his mother at the time of discharge. One of his sons called yesterday to check on him and this made him feel better. He thought his sons were not talking to him so knowing he has support seems to be helping his mood. Claims SI always present but continues to deny intent or plan. Will start Wellbutrin today. If some improvement after second dose tomorrow will consider discharge. Review of Systems Constitutional: Denies: fever, chills, weakness, weight change Eyes: Denies: eye pain, vision change Ears, Nose, Throat: Denies: ear pain, throat pain, dental pain, hearing loss, congestion Cardiovascular: Denies: chest pain, palpitations, dyspnea on exertion Respiratory: Denies: cough, dyspnea, wheezes Gastrointestinal: Denies: abdominal pain, nausea, vomiting, diarrhea, constipation Musculoskeletal: Denies: joint swelling, joint pain Neurological: Reports: headache. Denies: weakness, numbness, memory loss Objective: Exam Patient orientation: Yes Person, Yes Time, Yes Place Level of alertness: Alert Patient appearance: Appropriate Behavior: calm, cooperative Psychomotor activity: Normal Eye contact: Maintains Eye Contact Mood description: Depressed Affect description: congruent with mood Speech pattern: Normal rate, Normal rhythm, Normal tone Speech volume: Normal Thought process: Linear Thought content: Yes Suicidal ideation, No Homicidal ideation, No Overt delusions Perceptual disturbances: Yes Reacting to internal stimuli Judgment: Fair Insight: Partial Results - Vital Signs Vital Signs: Temp Pulse Resp BP 98.4 F 71 18 124/84 05/04/17 09:00 05/04/17 09:00 05/04/17 09:00 05/04/17 09:00 Assessment and Plan (1) Depression Current visit: No Status: Acute Plan: Continue hospitalization, Close observation, Suicide Precautions per unit protocol, Encourage participation in unit milieu, Group Therapy, Monitor sleep, Monitor appetite Risks, benefits, side effects, alternatives discussed w/pt: Yes Patient agreeable to treatment: Yes Qualifiers: Depression Type: major depressive disorder Major depression recurrence: recurrent Active/Remission status: currently active Major depression episode severity: severe Psychotic features: without psychotic features Qualified Code(s): F33.2 - Major depressive disorder, recurrent severe without psychotic features Consult Discharge Plan - Plan Referrals: [facility] [Outside] - 05/26/17 3:30 pm (The above appointment is with [facility], for outpatient psychiatric assessment and medication management services. Please arrive 30 minutes early to complete paperwork. Please bring your photo ID (bring proof of address if you do not have an ID) and medication list. This is the first available appointment. You may contact the office regularly to check for cancellations that may allow you to be seen sooner. Additionally, the new catalytic case operator assigned to you will contact you directly to schedule your intake appointment for case management and mental health counseling services. ) Zoë Downing, FINANCIAL SERVICES REP [Advanced Practice Nurse] - 05/07/17 1:00 pm (The above appointment is with Zoë Downing for primary healthcare and medication management services.)
[2017-05-04] MEDS: BuPROPion XL (24 HR) 150 MG TABLET PO SCH (14:50)
[2017-05-04] MEDS: Melatonin 3 MG TABLET PO SCH (20:13)
[2017-05-05] MEDS: traZODone 50 MG TABLET PO PRN (02:44)
[2017-05-05] MEDS: BuPROPion XL (24 HR) 150 MG TABLET PO SCH (08:41)
[2017-05-05] MEDS: Gabapentin 100 MG CAPSULE PO SCH ×3 (08:41→21:16)
[2017-05-05] MEDS: Acetaminophen/Butalbital/CaffeineTABLET PO PRN (10:23)
[2017-05-05] MEDS: hydrOXYzine pamoate 25 MG CAPSULE PO PRN (10:24)
--- NOTE | 2017-05-05 12:30 | Psychiatry Progress Note ---
Date of Encounter: 05/05/17 Time of Encounter: 12:26 Subjective Interval history: Still having fleeting SI but thinks Wellbutrin is helping. 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 Plan had been to discharge client today but mother came in and said client could not live with her as anticipated. Client also cannot return to preadmission housing because of his suicidal tendencies. Family he was staying with caught him with a bag over his head prior to admission and they don't feel comfortable with suicidal gestures in their home. Client wants to stay with the girlfriend of another patient on the unit. Discussed how this is not healthy. Social work reaching out to his family and will come up with an alternative plan for discharge tomorrow. Review of Systems Constitutional: Denies: fever, chills, weakness, weight change Eyes: Denies: eye pain, vision change Ears, Nose, Throat: Denies: ear pain, throat pain, dental pain, hearing loss, congestion Cardiovascular: Denies: chest pain, palpitations, dyspnea on exertion Respiratory: Denies: cough, dyspnea, wheezes Gastrointestinal: Denies: abdominal pain, nausea, vomiting, diarrhea, constipation Musculoskeletal: Denies: joint swelling, joint pain Neurological: Denies: headache, weakness, numbness, memory loss Objective: Exam Patient orientation: Yes Person, Yes Time, Yes Place Level of alertness: Alert Patient appearance: Appropriate Behavior: calm, cooperative Psychomotor activity: Normal Eye contact: Maintains Eye Contact Mood description: Depressed Affect description: congruent with mood Speech pattern: Normal rate, Normal rhythm, Normal tone Speech volume: Normal Thought process: Linear Thought content: No Suicidal ideation, No Homicidal ideation, No Overt delusions Perceptual disturbances: No Auditory hallucinations, No Visual hallucinations Judgment: Limited Insight: Minimal Results - Vital Signs Vital Signs: Temp Pulse Resp BP 97.8 F 67 16 138/88 05/05/17 09:00 05/05/17 09:00 05/05/17 09:00 05/05/17 09:00 Assessment and Plan (1) Depression Current visit: No Status: Acute Plan: Continue hospitalization, Close observation, Suicide Precautions per unit protocol, Encourage participation in unit milieu, Group Therapy, Monitor sleep, Monitor appetite Risks, benefits, side effects, alternatives discussed w/pt: Yes Patient agreeable to treatment: Yes Qualifiers: Depression Type: major depressive disorder Major depression recurrence: recurrent Active/Remission status: currently active Major depression episode severity: severe Psychotic features: without psychotic features Qualified Code(s): F33.2 - Major depressive disorder, recurrent severe without psychotic features Consult Discharge Plan - Plan Referrals: [facility] [Outside] - 05/26/17 3:30 pm (The above appointment is with [facility], for outpatient psychiatric assessment and medication management services. Please arrive 30 minutes early to complete paperwork. Please bring your photo ID (bring proof of address if you do not have an ID) and medication list. This is the first available appointment. You may contact the office regularly to check for cancellations that may allow you to be seen sooner. Additionally, the new casework supervisor assigned to you will contact you directly to schedule your intake appointment for case management and mental health counseling services. ) Zoë Downing, BONE DRIER OPERATOR [Advanced Practice Nurse] - 05/07/17 1:00 pm (The above appointment is with Zoë Downing for primary healthcare and medication management services.)
[2017-05-05] MEDS: Melatonin 3 MG TABLET PO SCH (21:17)
[2017-05-06] MEDS: Acetaminophen/Butalbital/CaffeineTABLET PO PRN (06:42)
[2017-05-06 08:32] VITALS: BP 139/93
[2017-05-06] MEDS: BuPROPion XL (24 HR) 150 MG TABLET PO SCH (08:42)
[2017-05-06] MEDS: Gabapentin 100 MG CAPSULE PO SCH (08:42)
--- NOTE | 2017-05-06 10:47 | Discharge Summary ---
Date of Encounter: 05/06/17 Time of Encounter: 10:43 Diagnosis - Discharge Diagnosis (1) Depression Status: Acute Qualifiers: Depression Type: major depressive disorder Major depression recurrence: recurrent Active/Remission status: currently active Major depression episode severity: severe Psychotic features: without psychotic features Qualified Code(s): F33.2 - Major depressive disorder, recurrent severe without psychotic features Medications - Discharge Medications Prescriptions: BuPROPion XL (24 HR) [Wellbutrin Xl] 150 mg PO DAILY #21 tab.er.24h Escitalopram [Lexapro] 10 mg PO DAILY #21 tablet hydrOXYzine pamoate [HydrOXYzine Pamoate] 25 mg PO TID PRN #63 capsule PRN Reason: Anxiety Melatonin 1.5 mg PO HS #42 tablet traZODone [TraZODone] 50 mg PO HS PRN #21 tablet PRN Reason: Insomnia Acetaminophen/Butalbital/Caffe [Fioricet] 1 each PO Q12HR PRN #14 tablet [Rx] BuPROPion XL (24 HR) [Wellbutrin Xl] 150 mg PO DAILY #21 tab.er.24h 05/06/17 [Rx ] Escitalopram [Lexapro] 10 mg PO DAILY #21 tablet 05/06/17 [Rx] Gabapentin [Neurontin] 100 mg PO TID capsule 05/06/17 [Rx] Melatonin 1.5 mg PO HS #42 tablet 05/06/17 [Rx] Metoprolol [Lopressor] 25 mg PO DAILY tablet 05/06/17 [Rx] Simvastatin [Zocor] 20 mg PO HS tablet 05/06/17 [Rx] hydrOXYzine pamoate [HydrOXYzine Pamoate] 25 mg PO TID PRN #63 capsule 05/06/17 [Rx] traZODone [TraZODone] 50 mg PO HS PRN #21 tablet 05/06/17 [Rx] 3 Allergy/AdvReac Type Severity Reaction Status Date / Time naproxen Allergy Hives Verified 04/30/17 17:26 Penicillins Allergy Shakiness Verified 04/30/17 17:26 Provider Date of admission: 05/02/17 15:12 Primary care physician: PCP NONE Discharging clinician: Leanne Piper Assessment and Plan - Patient/Caregiver Discharge Instructions Activity: resume usual activities as tolerated Diet: regular diet - Follow up Plan Follow up with: [facility] [Outside] - 05/26/17 3:30 pm (The above appointment is with [facility], for outpatient psychiatric assessment and medication management services. Please arrive 30 minutes early to complete paperwork. Please bring your photo ID (bring proof of address if you do not have an ID) and medication list. This is the first available appointment. You may contact the office regularly to check for cancellations that may allow you to be seen sooner. Additionally, the new case investigator assigned to you will contact you directly to schedule your intake appointment for case management and mental health counseling services. ) Zoë Downing, PROFESSIONAL SKATER [Advanced Practice Nurse] - 05/07/17 1:00 pm (The above appointment is with Zoë Downing for primary healthcare and medication management services.) Functional capacity at discharge: independent ambulation Overall status at discharge: Stable Disposition: Home, Self-Care Hospital Course Hospital course: Mr. Reyes is a 47 year old male who was admitted secondary to SI and suicidal gestures at home. He was started on Wellbutrin and Melatonin in addition to his home meds with good clinical effect. He attended and participated in groups. He was bright and social on the unit. Although he continued to have fleeting SI for the first couple of days he was denying all SI at the time of discharge. His improved due to the support of family as well. His mother agreed to let him stay with her at the time of discharge. He also received a phone call from his son he had not heard from in months. He was smiling and joking with peers and looked much brighter at the time of discharge. He was linked with mental health providers and appointments were secured. - Time Spent with Patient Total time spent providing and/or coordinating discharge services: Quality - Multiple Antipsychotics Patient discharged on 2 or more antipsychotic medications: No Procedures - Procedures Procedures: Medication Management, Crisis Stabilization, Supportive Therapy, Group Therapy Mental Status Exam - Mental Status Exam Patient orientation: Yes Person, Yes Time, Yes Place Level of alertness: Alert Patient appearance: Appropriate Behavior: calm, cooperative Psychomotor activity: Normal Eye contact: Maintains Eye Contact Mood description: Euthymic/stable Affect description: congruent with mood, full range Speech pattern: Normal rate, Normal rhythm, Normal tone Speech Volume: Normal Thought process: Linear, Goal Oriented Thought Content: No Suicidal ideation, No Homicidal ideation, No Overt delusions Perceptual Disturbances: No Auditory hallucinations, No Visual hallucinations Judgment: Fair Insight: Partial
== END 2017-05-06 11:35 | disposition home or self-care (01) | DRG 751 ==
LOC: 1ANU 15:12
PROVIDERS: ADMIT Psychiatry & Neurology Psychiatry; ATTEND Psychiatry & Neurology Psychiatry